=== PATIENT | female | born 1940 | race Caucasian/White ===

== ENCOUNTER 2016-10-28 14:01 | Inpatient (IN) | payer OTHER, MEDICARE ==
[~2016-10-28] VITALS: Ht 157.5 cm; Wt 61.8 kg
[2016-10-28] VITALS (8 sets, daily range): BP systolic 132–205; BP diastolic 60–94; PULSE 72–92; RESP 12–20; TEMP 98.2–99.1; O2SAT 95–100
[~2016-10-28 14:01] MED LIST: BACL10TA PO; CARA1TAB6 PO; COMMODE 3-IN-11 MIS; LEVE500 PO; LIPI10TA PO; NEUR300C PO; PANT20 PO; QUAD CANE/SMALL1 MI1; WHEEMIS3
[2016-10-28] MEDS ORDERED: SODIUM CHLOR 0.9% 1000 ML INJ 1,000 ML IV ONE (14:10)
--- NOTE | 2016-10-28 14:23 | PD ---
HPI Chief Complaint: Stroke Alert Time Seen by Provider: 14:09 Travel History International Travel<30 days: No Contact w/Intl Traveler<30days: No Traveled to known affect area: No History of Present Illness HPI 76-year-old female was brought in by EMS stroke alert. 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 Patient had TPA and subsequent intracranial hemorrhage. Patient was discharged to rehabilitation and has been doing well at home. Patient almost complete function subsequently. Patient started having aphasia and left-sided weakness and left-sided facial drooping about 1 hour prior to arrival to the ED. EMS was called. Patient was transported to the ED. No reported recent injury. EMS personnel reported on the way to the ED patient started speaking and moving left arm and left leg again. PFSH Past Medical History Hx Anticoagulant Therapy: No Arthritis: No Asthma: No Autoimmune Disease: No Heart Rhythm Problems: No Cancer: No Cardiovascular Problems: Yes High Cholesterol: No Chemotherapy: No Chest Pain: No Congestive Heart Failure: No COPD: No Cerebrovascular Accident: Yes (SAH) Diabetes: No Endocrine: No Gastrointestinal Disorders: No GERD: No Genitourinary: No Headaches: Yes Hiatal Hernia: No Heparin Induced Thrombocytopen: No Hypertension: Yes Immune Disorder: No Implanted Vascular Access Dvce: No Kidney Stones: No Musculoskeletal: No Neurologic: Yes Psychiatric: No Reproductive: No Respiratory: No Immunizations Current: Yes Migraines: No Radiation Therapy: No Renal Failure: No Seizures: No Sickle Cell Disease: No Sleep Apnea: No Thyroid Disease: No Ulcer: No : 2 Para: 2 Tubal Ligation: Yes Past Surgical History Abdominal Surgery: No AICD: No Arteriovenous Shunt: No Cardiac Surgery: No Ear Surgery: No Endocrine Surgery: No Eye Surgery: No Genitourinary Surgery: No Gynecologic Surgery: No Insulin Pump: No Joint Replacement: No Neurologic Surgery: Yes Oral Surgery: No Pacemaker: No Thoracic Surgery: No Other Surgery: Yes Social History Alcohol Use: No Tobacco Use: No Substance Use: No Allergies-Medications (Allergen,Severity, Reaction): Coded Allergies: Flu Vaccine (Verified Allergy, Severe, 10/28/16) Uncoded Allergies: anethesia (Adverse Reaction, Severe, Nausea/Vomiting, 06/15/16) Reported Meds & Prescriptions Reported Meds & Active Scripts Active Neurontin (Gabapentin) 300 Mg Cap 300 Mg PO HS Baclofen 10 Mg Tab 5 Mg PO Q12HR 30 Days Keppra (Levetiracetam) 500 Mg Tab 500 Mg PO Q12HR Carafate (Sucralfate) 1 Gm Tab 1 Gm PO BIDAC 30 Days Protonix (Pantoprazole Sodium) 20 Mg Tab 40 Mg PO Q12HR 30 Days Lipitor (Atorvastatin Calcium) 10 Mg Tab 10 Mg PO HS 30 Days Wheelchair (Device) 1 Mis Mis 1 Ea .ROUTE DIRECTED Quad Cane/Small Base (Misc. Devices) 1 Mis Mis 1 Ea .ROUTE DIRECTED Commode 3-in-1 (Device) 1 Mis Mis 1 Ea .ROUTE DIRECTED Reported Hydrocodone-Acetaminophen 10-300 Tab 1 Tab PO Q4H PRN Fosamax (Alendronate Sodium) 70 Mg Tab 70 Mg PO Q7D Review of Systems General / Constitutional: No: Fever Eyes: No: Visual changes HENT: No: Headaches Cardiovascular: No: Chest Pain or Discomfort Respiratory: No: Shortness of Breath Gastrointestinal: No: Abdominal Pain Genitourinary: No: Dysuria Musculoskeletal: No: Pain Skin: No Rash Neurologic: Positive: Weakness Psychiatric: No: Depression Endocrine: No: Polydipsia Hematologic/Lymphatic: No: Easy Bruising Physical Exam Narrative GENERAL: Well-nourished, well-developed patient. SKIN: Warm and dry. HEAD: Normocephalic. EYES: No scleral icterus. No injection or drainage. NECK: Supple, trachea midline. No JVD or lymphadenopathy. CARDIOVASCULAR: Regular rate and rhythm without murmurs, gallops, or rubs. RESPIRATORY: Breath sounds equal bilaterally. No accessory muscle use. GASTROINTESTINAL: Abdomen soft, non-tender, nondistended. MUSCULOSKELETAL: No cyanosis, or edema. BACK: Nontender without obvious deformity. No CVA tenderness. Neurologic exam: Patient's awake and alert. Patient can tell me her name and place. Unable to tell me the year. The speech is slow however no slurring. No facial drooping noted. Patient has mild weakness on the left arm and left leg. Patient's unable to lift the left arm and left leg off the bed. Deep tendon reflexes 1+ and equal. Negative Babinski. Data Data Last Documented VS Vital Signs Date Time Temp Pulse Resp B/P Pulse Ox O2 Delivery O2 Flow Rate FiO2 10/28/16 14:46 72 12 205/91 99 Nasal Cannula 2 10/28/16 14:03 98.2 Orders Diet Npo (10/28/16 Dinner) Activity Bed Rest (10/28/16 ) Electrocardiogram (10/28/16 ) I-Stat Creatinine (10/28/16 14:10) I-Stat Profile (10/28/16 14:10) Prothrombin Time / Inr (Pt) (10/28/16 14:10) Act Partial Throm Time (Ptt) (10/28/16 14:10) Complete Blood Count With Diff (10/28/16 14:10) Creatine Kinase (Cpk) (10/28/16 14:10) Troponin I (10/28/16 14:10) Ua Includes Microscopic (10/28/16 14:10) Type And Screen (10/28/16 14:10) Ct Brain W/O Iv Contrast(Rout) (10/28/16 ) Consult Neurology (10/28/16 ) Blood Glucose (10/28/16 14:10) Ecg Monitoring (10/28/16 14:10) Neuro Checks Q2HX12,Q4H (10/28/16 14:10) Nursing Bedside Swallow Assess .ONCE (10/28/16 14:10) Iv Access Insert/Monitor (10/28/16 14:10) NPO (10/28/16 14:10) Oximetry (10/28/16 14:10) Oxygen Administration (10/28/16 14:10) Sodium Chlor 0.9% 1000 Ml Inj (Ns 1000 M (10/28/16 14:10) Resp Oxygen Stevie C Titrat 1-4 L (10/28/16 14:10) (Hub Use Only)Inp Phy Cons/Ref (10/28/16 ) Dextrose 50% In Artur (Vial) Inj (D50w (Vi (10/28/16 14:45) Mri Brain W/O Contrast (10/28/16 15:21) Mra Brain W/O Contrast (Cow) (10/28/16 15:21) Mra Carotids W Contrast (10/28/16 15:21) Aspirin (Aspirin) (10/28/16 15:30) Labs Laboratory Tests Test 10/28/16 14:10 White Blood Count 11.2 TH/MM3 Red Blood Count 4.14 MIL/MM3 Hemoglobin 11.7 GM/DL Bedside Hemoglobin 12.2 G/DL Hematocrit 36.1 % Bedside Hematocrit 36.0 % Mean Corpuscular Volume 87.2 FL Mean Corpuscular Hemoglobin 28.2 PG Mean Corpuscular Hemoglobin 32.4 % Concent Red Cell Distribution Width 15.0 % Platelet Count 326 TH/MM3 Mean Platelet Volume 8.1 FL Neutrophils (%) (Auto) 64.4 % Lymphocytes (%) (Auto) 19.9 % Monocytes (%) (Auto) 8.6 % Eosinophils (%) (Auto) 6.7 % Basophils (%) (Auto) 0.4 % Neutrophils # (Auto) 7.2 TH/MM3 Lymphocytes # (Auto) 2.2 TH/MM3 Monocytes # (Auto) 1.0 TH/MM3 Eosinophils # (Auto) 0.7 TH/MM3 Basophils # (Auto) 0.0 TH/MM3 CBC Comment DIFF FINAL Differential Comment Prothrombin Time 11.0 SEC Prothromb Time International 1.0 RATIO Ratio Activated Partial 27.7 SEC Thromboplast Time Bedside Sodium 140 MMOL/L Bedside Potassium 4.1 MMOL/L Bedside Chloride 99 MMOL/L Bedside Blood Urea Nitrogen 18 MG/DL Bedside Creatinine 0.7 MG/DL Bedside Glucose 87 MG/DL Total Creatine Kinase 26 U/L Troponin I LESS THAN 0.02 NG/ML Blood Type O POSITIVE MDM Medical Decision Making Medical Screen Exam Complete: Yes Emergency Medical Condition: Yes Interpretation(s) Last Impressions Head CT 10/28/16 0000 Signed Impressions: Service Date/Time: Friday, October 28, 2016 14:18 - CONCLUSION: 1. No acute hemorrhage, mass or evidence of infarction. 2. Post surgical changes and encephalomalacia again noted. David Juárez MD 1509 p.m. CBC within normal limit. BMP within normal limit. Differential Diagnosis Differential diagnosis including TIA, CVA. Narrative Course 76-year-old female with aphasia, left facial drooping, left-sided weakness. Symptoms started about an hour prior to arrival. Symptoms improving on the way to the ED. With history of intracranial hemorrhage after TPA during past CVA and patient's symptoms improving today, I spoke with Dr. Mauro, neurologist digital operations analyst, TPA is not indicated. Aspirin 325 mg by mouth given. Diagnosis Primary Impression: Acute CVA (cerebrovascular accident) Luis Perla MD Oct 28, 2016 14:23
[2016-10-28 14:28] LABS: I-STAT POTASSIUM 4.1 MMOL/L (3.5-4.9); I-STAT SODIUM 140 MMOL/L (138-146)
[2016-10-28 14:29] LABS: AUTOMATED NEUTROPHIL # 7.2 TH/MM3 (1.8-7.7); BASOPHIL % 0.4 % (0.0-2.0); EOSINOPHIL # 0.7 TH/MM3 (0-0.4); EOSINOPHIL % 6.7 % (0.0-4.0); HEMATOCRIT 36.1 % (35.0-46.0); HEMO FLAGS DIFF FINAL; LYMPH % 19.9 % (9.0-44.0); LYMPHOCYTE # 2.2 TH/MM3 (1.0-4.8); MEAN CELL VOLUME 87.2 FL (80.0-100.0); MEAN CORPUSCULAR HEMOGLOBIN 28.2 PG (27.0-34.0); MEAN CORPUSCULAR HGB CONC 32.4 % (32.0-36.0); MONO % 8.6 % (0.0-8.0); NEUT % 64.4 % (16.0-70.0); PLATELET COUNT 326 TH/MM3 (150-450); RED BLOOD COUNT 4.14 MIL/MM3 (4.00-5.30); WHITE BLOOD COUNT 11.2 TH/MM3 (4.0-11.0)
--- NOTE | 2016-10-28 14:36 | RADRPT ---
EXAM DATE/TIME: 10/28/2016 14:18 [facility] COMPARISON: CT BRAIN W/O CONTRAST, June 15, 2016, 17:47. CT BRAIN W/O CONTRAST, June 16, 2016, 5:26. CT B RAIN W/O CONTRAST, June 24, 2016, 17:23. CT BRAIN W/O CONTRAST, July 26, 2016, 14:17. CT BRA IN W/O CONTRAST, August 26, 2016, 20:58. INDICATIONS : Stroke alert; left sided weakness and aphasia. RADIATION DOSE: 30.76 CTDIvol (mGy) This report was called by Dr. Juárez to Dr. Perla at 1428 hrs. MEDICAL HISTORY : Cerebrovascular disease. Hypertension. Cardiovascular disease SURGICAL HISTORY : Craniotomy. ENCOUNTER: Initial ACUITY: 1 day PAIN SCALE: 0/10 LOCATION: cranial TECHNIQUE: Multiple contiguous axial images were obtained of the head. Using automated exposure control and adj ustment of the mA and/or kV according to patient size, radiation dose was kept as low as reasonably a chievable to obtain optimal diagnostic quality images. FINDINGS: CEREBRUM: There is mild to moderate atrophic change. Postoperative changes are present status post right cranio yasmine. There is a focal area of encephalomalacia involving the high right parietal lobe.. No evidence of midline shift, mass lesion, hemorrhage or acute infarction. No extra-axial fluid collections are seen. The ventricular system is stable in appearance. There is a small fat density noted involving a nterior aspect of the right lateral ventricle during -38 Hounsfield units. This is unchanged. POSTERIOR FOSSA: The cerebellum and brainstem are intact. The 4th ventricle is midline. The cerebellopontine angle i s unremarkable. EXTRACRANIAL: The visualized portion of the orbits is intact. SKULL: The calvaria is intact. No evidence of skull fracture. CONCLUSION: 1. No acute hemorrhage, mass or evidence of infarction. 2. Post surgical changes and encephalomalacia again noted. David Juárez MD on October 28, 2016 at 14:26 Board Certified Radiologist. This report was verified electronically.
[2016-10-28 14:40] LABS: APTT (PATIENT) 27.7 SEC (24.3-30.1)
[2016-10-28] MEDS ORDERED: DEXTROSE 50% IN WATER 50 ML VIAL(D50) IV PUSH ONE (14:45)
[2016-10-28 14:48] LABS: CREATINE KINASE 26 U/L (26-192)
[2016-10-28] MEDS ORDERED: FOSA70TA PO (15:05)
[2016-10-28] MEDS ORDERED: HYDR-2374 PO (15:05)
[2016-10-28] MEDS ORDERED: ASPIRIN 300 MG SUPP RECTAL ONE (15:30)
[2016-10-28] MEDS ORDERED: ASPIRIN 325 MG TAB PO ONE (15:30)
[2016-10-28 15:32] LABS: BLOOD, URINE NEG (NEG); GLUCOSE,URINE NEG (NEG); KETONE, URINE NEG (NEG); NITRITE,URINE NEG (NEG); SQUAMOUS EPITHELIAL CELL URINE 1 /hpf (0-5); URINE COLOR COLORLESS (YELLW/STRAW)
--- NOTE | 2016-10-28 16:04 | HHI.HP ---
[facility] Service [facility] Primary Care Physician Unknown Admission Diagnosis acute CVA Diagnoses: (1) CVA (cerebral vascular accident) Diagnosis: Principal Chief Complaint: slurred speech and left sided weakness Travel History International Travel<30 Days: No Contact w/Intl Traveler <30 Da: No Traveled to Known Affected Are: No History of Present Illness patient is a 76 y/o female, known to me from previous admission, with history of CVA, intracranial bleed after TPA administration ( ), hypertension, presented to ER with slurred speech and left-sided weakness. the family said that she started to have some slurred speech and left sided weakness about three hours ago. she says that her speech has improved however still has some ' heaviness' of the left leg. she denies any chest pain or sob. she was admitted to this hospital in 2015 with CVA and developed intracranial hemorrhage after TPA for which she had craniotomy. she was then discharged to inpatient rehab. the family say that she's been doing fairly fine since then. Review of Systems Constitutional: DENIES: Fever, Weight loss, Chills, Night Sweats Eyes: DENIES: Blurred vision, Diplopia, Vision loss, Double Vision Ears, nose, mouth, throat: DENIES: Tinnitus, Vertigo, Throat pain, Epistaxis Respiratory: DENIES: Apneas, Cough, Snoring, Wheezing, Hemoptysis, Sputum production, Shortness of breath Cardiovascular: DENIES: Chest pain, Palpitations, Syncope, Dyspnea on Exertion , PND, Lower Extremity Edema, Orthopnea, Claudication Gastrointestinal: DENIES: Abdominal pain, Black stools, Bloody stools, Constipation, Diarrhea, Nausea, Vomiting, Difficulty Swallowing, Anorexia Genitourinary: DENIES: Urinary frequency, Urgency, Hematuria, Dysuria Musculoskeletal: DENIES: Joint pain, Muscle aches, Stiffness, Joint Swelling Integumentary: DENIES: Rash Neurologic: COMPLAINS OF: Localized weakness, Speech Problems, DENIES: Abnormal gait, Headache, Paresthesias, Seizures, Tremor, Poor Balance Psychiatric: DENIES: Anxiety, Confusion, Mood changes, Depression, Hallucinations, Agitation, Suicidal Ideation, Homicidal Ideation, Delusions Past Family Social History Past Medical History CVA hypertension neuropathy Past Surgical History craniotomy Reported Medications Neurontin (Gabapentin) 300 Mg Cap 300 Mg PO HS Baclofen 10 Mg Tab 5 Mg PO Q12HR 30 Days Keppra (Levetiracetam) 500 Mg Tab 500 Mg PO Q12HR Carafate (Sucralfate) 1 Gm Tab 1 Gm PO BIDAC 30 Days Protonix (Pantoprazole Sodium) 20 Mg Tab 40 Mg PO Q12HR 30 Days Lipitor (Atorvastatin Calcium) 10 Mg Tab 10 Mg PO HS 30 Days Wheelchair (Device) 1 Mis Mis 1 Ea .ROUTE DIRECTED Quad Cane/Small Base (Misc. Devices) 1 Mis Mis 1 Ea .ROUTE DIRECTED Commode 3-in-1 (Device) 1 Mis Mis 1 Ea .ROUTE DIRECTED Hydrocodone-Acetaminophen 10-300 Tab 1 Tab PO Q4H PRN Fosamax (Alendronate Sodium) 70 Mg Tab 70 Mg PO Q7D Allergies: Coded Allergies: Flu Vaccine (Verified Allergy, Severe, 10/28/16) Uncoded Allergies: anethesia (Adverse Reaction, Severe, Nausea/Vomiting, 06/15/16) Active Ordered Medications Current Medications Sodium Chloride (NS 1000 ml Inj) 1,000 ml @ 70 mls/hr [id number] ONCE IV Last administered on 10/28/16 14:20; Start 10/28/16 at 14:10; Stop 10/29/16 at 04:27 Dextrose (D50w (Vial) Inj) 25 ml ONCE ONCE IV PUSH Last administered on 14:48; Start 10/28/16 at 14:45; Stop 10/28/16 at 14:46; Status DC Aspirin (Aspirin) 325 mg ONCE ONCE PO Last administered on 10/28/16 15:35; Start 10/28/16 at 15:30; Stop 10/28/16 at 15:31; Status DC Aspirin (Aspirin Supp) 300 mg ONCE ONCE RECTAL ; Start 10/28/16 at 15:30; Stop 10/28/16 at 15:36; Status DC Social History no smoking or drinking. Physical Exam Vital Signs Vital Signs Date Time Temp Pulse Resp B/P Pulse Ox O2 Delivery O2 Flow Rate FiO2 10/28/16 14:46 72 12 205/91 99 Nasal Cannula 2 10/28/16 14:20 83 20 197/82 98 Nasal Cannula 2 10/28/16 14:13 98 Nasal Cannula 2 10/28/16 14:13 98 Room Air 10/28/16 14:10 98 2.00 10/28/16 14:10 98 Nasal Cannula 2.00 10/28/16 14:03 98.2 92 20 185/93 99 Physical Exam GENERAL: This is a well-nourished, well-developed patient, in no apparent distress. SKIN: No rashes, ecchymoses or lesions. Cool and dry. HEAD: Atraumatic. Normocephalic. No temporal or scalp tenderness. EYES: Pupils equal round and reactive. Extraocular motions intact. No scleral icterus. No injection or drainage. ENT: Nose without bleeding, purulent drainage or septal hematoma. Throat without erythema, tonsillar hypertrophy or exudate. Uvula midline. Airway patent. NECK: Trachea midline. No JVD or lymphadenopathy. Supple, nontender, no meningeal signs. CARDIOVASCULAR: Regular rate and rhythm without murmurs, gallops, or rubs. RESPIRATORY: Clear to auscultation. Breath sounds equal bilaterally. No wheezes , rales, or rhonchi. GASTROINTESTINAL: Abdomen soft, non-tender, nondistended. No hepato-splenomegaly , or palpable masses. No guarding. MUSCULOSKELETAL: Extremities without clubbing, cyanosis, or edema. No joint tenderness, effusion, or edema noted. No calf tenderness. Negative Homans sign bilaterally. NEUROLOGICAL: Awake and alert. Cranial nerves II through XII intact. Motor and sensory grossly within normal limits. some weakness of the left upper and lower extremities. Laboratory Laboratory Tests Test 10/28/16 10/28/16 14:10 15:00 White Blood Count 11.2 Red Blood Count 4.14 Hemoglobin 11.7 Bedside Hemoglobin 12.2 Hematocrit 36.1 Bedside Hematocrit 36.0 Mean Corpuscular Volume 87.2 Mean Corpuscular Hemoglobin 28.2 Mean Corpuscular Hemoglobin 32.4 Concent Red Cell Distribution Width 15.0 Platelet Count 326 Mean Platelet Volume 8.1 Neutrophils (%) (Auto) 64.4 Lymphocytes (%) (Auto) 19.9 Monocytes (%) (Auto) 8.6 Eosinophils (%) (Auto) 6.7 Basophils (%) (Auto) 0.4 Neutrophils # (Auto) 7.2 Lymphocytes # (Auto) 2.2 Monocytes # (Auto) 1.0 Eosinophils # (Auto) 0.7 Basophils # (Auto) 0.0 CBC Comment DIFF FINAL Differential Comment Prothrombin Time 11.0 Prothromb Time International 1.0 Ratio Activated Partial 27.7 Thromboplast Time Bedside Sodium 140 Bedside Potassium 4.1 Bedside Chloride 99 Bedside Blood Urea Nitrogen 18 Bedside Creatinine 0.7 Bedside Glucose 87 Total Creatine Kinase 26 Troponin I LESS THAN 0.02 Blood Type O POSITIVE Urine Color COLORLESS Urine Turbidity CLEAR Urine pH 7.0 Urine Specific Cunningham 1.002 Urine Protein NEG Urine Glucose (UA) NEG Urine Ketones NEG Urine Occult Blood NEG Urine Nitrite NEG Urine Bilirubin NEG Urine Urobilinogen LESS THAN 2.0 Urine Leukocyte Esterase NEG Urine Squamous Epithelial 1 Cells Result Diagram: 10/28/16 1410 Imaging Last Impressions Head CT 10/28/16 0000 Signed Impressions: Service Date/Time: Friday, October 28, 2016 14:18 - CONCLUSION: 1. No acute hemorrhage, mass or evidence of infarction. 2. Post surgical changes and encephalomalacia again noted. David Juárez MD EKG; sinus rhythm with no acute ST-T changes. Assessment and Plan Assessment and Plan A/P - possible CVA with history of CVA/ intracranial hemorrhage after TPA neuro-checks- received aspirin- MRI brain pending- consulted neurology- PT/ST evaluation. neck CTA 2015 with no significant stenosis. -hypertension; will continue with permissive hypertension- vasotec prn -DVT prophylaxis with SCD's Discussed Condition With ER physician, the patient and her family. Physician Certification 2 Midnight Certification Type: Admission for Inpatient Services Order for Inpatient Services The services are ordered in accordance with Medicare regulations or non- Medicare payer requirements, as applicable. In the case of services not specified as inpatient-only, they are appropriately provided as inpatient services in accordance with the 2-midnight benchmark. Estimated LOS (days): 2 days is the estimated time the patient will need to remain in the hospital, assuming treatment plan goals are met and no additional complications. Post-Hospital Plan: Not yet determined Problem Qualifiers (1) CVA (cerebral vascular accident): Dianna Larson MD Oct 28, 2016 16:04
[2016-10-28] MEDS ORDERED: ENALAPRILAT 1.25 MG/ML VIAL IV PUSH PRN (16:15)
[2016-10-28] MEDS ORDERED: ONDANSETRON HCL 4 MG/2 ML VIAL IV PUSH PRN (16:15)
[2016-10-28] MEDS ORDERED: ACETAMINOPHEN 325 MG TAB PO PRN (16:15)
[2016-10-28] MEDS ORDERED: GADODIAMIDE PF 287 MG/ML 20 ML VIAL (for RAD MRI) IV ONE (16:38)
--- NOTE | 2016-10-28 17:25 | RADRPT ---
EXAM DATE/TIME: 10/28/2016 16:17 [facility] COMPARISON: No previous studies available for comparison. INDICATIONS : Aphasia. Left sided weakness and facial droop. MEDICAL HISTORY : Cerebrovascular disease. SURGICAL HISTORY : Rotator cuff, left. Tubal ligation. Ankle repair. ENCOUNTER: Subsequent ACUITY: 1 day PAIN SCORE: 0/10 LOCATION: head. Please note a normal MRA of the brain does not entirely exclude the possibility of a small aneurysm, nor the possibility of distal intracranial vessel disease. TECHNIQUE: 3D time of flight MRA was performed. Source images, multiplanar STS MIP, and 3D volume MIP reconstru ctions were reviewed. FINDINGS: There is excellent visualization of the major intracranial arteries out to the second-order branch ve ssels. There is no evidence for aneurysm, vessel truncation or stenosis, and no evidence for vascula r malformation. Of note, the entire posterior circulation is diminutive as the basilar system terminates in superior cerebellar branches. 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 Patient is right vertebral dominant. CONCLUSION: 1. 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 P atient is slightly right vertebral dominant. 2. Otherwise, intracranial vessels are all patent without aneurysmal disease. Byron Harrison MD on October 28, 2016 at 17:21 Board Certified Radiologist. This report was verified electronically.
--- NOTE | 2016-10-28 17:25 | RADRPT ---
EXAM DATE/TIME: 10/28/2016 16:17 [facility] COMPARISON: CT BRAIN W/O CONTRAST, August 11, 2016, 3:34. CT BRAIN W/O CONTRAST, August 26, 2016, 20:58. CT BRAIN W/O CONTRAST, October 28, 2016, 14:18. INDICATIONS : Aphasia. Left sided weakness and facial droop. MEDICAL HISTORY : Cardiovascular disease SURGICAL HISTORY : Rotator cuff, left. Tubal ligation. Ankle repair. ENCOUNTER: Subsequent ACUITY: 1 day PAIN SCORE: 0/10 LOCATION: head. TECHNIQUE: Multiplanar, multisequence MRI of the brain was performed without contrast. FINDINGS: CEREBRUM: There is mild to moderate atrophic change with sulcal and ventricular prominence. No evidence of midl ine shift, mass lesion, or hemorrhage. There is an area of encephalomalacia again noted involving the right parietal lobe with increased T2 signal and apparent gliosis. No extraaxial fluid collections a re seen. The pituitary gland and suprasellar cistern are normal in configuration. The ventricular sy stem remains within normal limits. There is a small lipoma in the anterior tip of the right lateral v entricle. WHITE MATTER: On the flair weighted images there is increased signal in the centrum semiovale and periventricular w catia matter consistent with chronic small vessel ischemic change. There is a small lacunar infarct in the left basal ganglia. POSTERIOR FOSSA: The cerebellum and brainstem are intact. The 4th ventricle is midline. The cerebellopontine angle is unremarkable. The cerebellar tonsils are normal in position. DIFFUSION IMAGING: On the echoplanar weighted images there are multiple areas of mildly increased signal noted within th e area of encephalomalacia. EXTRACRANIAL: The visualized portions of the orbits and paranasal sinuses are unremarkable. The patient is status p ost right craniotomy. CONCLUSION: 1. No acute hemorrhage. 2. Area of encephalomalacia and gliosis in the right parietal lobe at site of prior infarction and he morrhage. There are areas of mildly increased signal in the echoplanar weighted images which could re present joselin-infarct ischemia or T2 shine through. 3. No mass effect or midline shift. 4. 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 David Juárez MD on October 28, 2016 at 17:09 Board Certified Radiologist. This report was verified electronically.
--- NOTE | 2016-10-28 17:29 | RADRPT ---
EXAM DATE/TIME: 10/28/2016 16:17 [facility] COMPARISON: No previous studies available for comparison. INDICATIONS : Stenosis. Left sided weakness. CONTRAST: 20 cc Omniscan (gadodiamide) IV MEDICAL HISTORY : Cerebrovascular disease. SURGICAL HISTORY : Rotator cuff, left. Tubal ligation. Ankle repair. ENCOUNTER: Subsequent ACUITY: 1 day PAIN SCORE: 0/10 LOCATION: neck. Percent stenosis is calculated using the diameter of the stenotic region over the diameter of the nor mal distal internal carotid artery. TECHNIQUE: Bolus infused MRA of the extracranial circulation was performed using a neurovascular coil. Post pro cessing was performed including rotationg subvolume maximum intensity projections of each carotid art rodrigo, rotating full volume maximum intensity projections of both carotid arteries, sagittal and weir l sliding thin slab reformations of each carotid artery, and left oblique sliding thin slab reformati on through the aortic arch to include the origin of the arch branch vessels. FINDINGS: AORTIC ARCH: There is a three vessel origin of the great vessels from the aorta. No evidence of ostial narrowing. RIGHT CAROTID: The common carotid artery is intact. The carotid bulb has a normal configuration without ulceration or narrowing. The internal carotid artery lumen is smooth without stenosis. The external carotid ar roosevelt is intact. LEFT CAROTID: The common carotid artery is intact. The carotid bulb has a normal configuration without ulceration or narrowing. The internal carotid artery lumen is smooth without stenosis. The external carotid ar roosevelt is intact with some mild atherosclerotic irregularity near the origin. VERTEBRALS: The entire posterior circulation is relatively diminutive as the basilar terminates in superior cereb ellar arteries bilaterally. Patient is slightly right vertebral dominant. The posterior circulation i s patent throughout, however. CONCLUSION: 1. Cervical vessels are all widely patent except for some mild atherosclerotic irregularity of the le ft external carotid. 2. Congenitally diminutive posterior circulation. Byron Harrison MD on October 28, 2016 at 17:24 Board Certified Radiologist. This report was verified electronically.
[2016-10-28] MEDS ORDERED: NITR1CAP36 PO (19:31)
--- NOTE | 2016-10-28 20:05 | PD.CONS ---
History of Present Illness Service Neurology Consult Requested By er Reason for Consult stroke Primary Care Physician Christiano Maravilla MD History of Present Illness 76 y/o female, admitted for possible recurrent stroke. ICH after iv TPA administration 06/2016 requiring cranio, hypertension, presented to ER with slurred speech and left-sided weakness worse then her residual from the prior stroke. her residuals are left arm greater then leg weakness. she is able to ambulate independently. her speech has improved; they feel her left hand may not be back to her new baseline. takes keppra bid. not on any antiplatelets. mri brain/mra brain/carotids performed. Review of Systems as above and admit hp Past Family Social History Past Medical History rt mca stroke hypertension neuropathy Past Surgical History craniotomy Reported Medications Neurontin (Gabapentin) 300 Mg Cap 300 Mg PO HS Baclofen 10 Mg Tab 5 Mg PO Q12HR 30 Days Keppra (Levetiracetam) 500 Mg Tab 500 Mg PO Q12HR Carafate (Sucralfate) 1 Gm Tab 1 Gm PO BIDAC 30 Days Protonix (Pantoprazole Sodium) 20 Mg Tab 40 Mg PO Q12HR 30 Days Lipitor (Atorvastatin Calcium) 10 Mg Tab 10 Mg PO HS 30 Days Wheelchair (Device) 1 Mis Mis 1 Ea .ROUTE DIRECTED Quad Cane/Small Base (Misc. Devices) 1 Mis Mis 1 Ea .ROUTE DIRECTED Commode 3-in-1 (Device) 1 Mis Mis 1 Ea .ROUTE DIRECTED Hydrocodone-Acetaminophen 10-300 Tab 1 Tab PO Q4H PRN Fosamax (Alendronate Sodium) 70 Mg Tab 70 Mg PO Q7D Allergies: Coded Allergies: Flu Vaccine (Verified Allergy, Severe, 10/28/16) Uncoded Allergies: anesthesia (Adverse Reaction, Severe, Nausea/Vomiting, 06/15/16) Social History no smoking or drinking. Review of Systems All other ROS: ROS reviewed as documented in chart Past Family Social History Allergies: Coded Allergies: Flu Vaccine (Verified Allergy, Severe, 10/28/16) Uncoded Allergies: anethesia (Adverse Reaction, Severe, Nausea/Vomiting, 06/15/16) Active Ordered Medications Current Medications Medications (Trade) Dose Ordered Sig/[place]ona Route Start Time Stop Time Status Last Admin (NS 1000 ml Inj) 1,000 ml @ 70 mls/hr [id number] ONCE IV 10/28/16 14:10 10/29/16 04:27 10/28/16 14:20 (Lipitor) 10 mg HS PO 10/28/16 21:00 (Keppra) 500 mg Q12HR PO 10/28/16 21:00 (Vasotec Inj) 1.25 mg Q8H PRN IV PUSH 10/28/16 16:15 (Zofran Inj) 4 mg Q8HR PRN IV PUSH 10/28/16 16:15 (Tylenol) 650 mg Q4H PRN PO 10/28/16 16:15 Exam I&O / VS Vital Signs Date Time Temp Pulse Resp B/P Pulse Ox O2 Delivery O2 Flow Rate FiO2 10/28/16 19:06 74 16 132/60 96 Nasal Cannula 2 10/28/16 17:04 78 16 145/72 100 Nasal Cannula 2 10/28/16 14:46 72 12 205/91 99 Nasal Cannula 2 10/28/16 14:20 83 20 197/82 98 Nasal Cannula 2 10/28/16 14:13 98 Nasal Cannula 2 10/28/16 14:13 98 Room Air 10/28/16 14:10 98 2.00 10/28/16 14:10 98 Nasal Cannula 2.00 10/28/16 14:03 98.2 92 20 185/93 99 General: Alert and Oriented, No acute distress Respiratory: Lungs CTA, Non-labored respirations Cardiology: Normal rate, Regular Rhythm Neurologic: Alert, Oriented Psychiatric: Cooperative, Appropriate mood & affect Exam Comments ox 3. mild dysarthria. follows. mild reduced left nlf, left ue 4/5 with reduced ffm, left leg 5-/5, mild left sided spasticity, left hemisensory Review/Management Diagnosis/Plan: (1) Chronic ischemic right MCA stroke Plan: possible extension vs 2/2 elevated bp recs aspirin qd eeg bp control p.t. d/c planning tomorrow if stable (2) Left hemiparesis (3) Dyslipidemia (4) HTN (hypertension) Problem Qualifiers (1) HTN (hypertension): Qualified Code: I10 - Essential hypertension Driss Mauro MD Oct 28, 2016 20:05
[2016-10-28] MEDS ORDERED: ATORVASTATIN 10 MG TAB PO SCH (21:00)
[2016-10-28] MEDS: levETIRAcetam 500 MG TAB PO SCH (21:04)
[2016-10-29] VITALS (7 sets, daily range): BP systolic 137–156; BP diastolic 61–80; PULSE 73–170; RESP 17–20; TEMP 97.4–99; O2SAT 92–98
--- NOTE | 2016-10-29 08:15 | HHI.PR ---
Subjective Remarks f/u; CVA in no acute distress. no new complaints. Objective Vitals Vital Signs Date Time Temp Pulse Resp B/P Pulse Ox O2 Delivery O2 Flow Rate FiO2 10/29/16 05:30 97.4 75 18 137/80 93 10/29/16 04:13 92 Nasal Cannula 2.00 10/29/16 00:40 99.0 75 18 153/71 93 10/28/16 21:57 99.1 79 18 151/94 95 10/28/16 19:06 74 16 132/60 96 Nasal Cannula 2 10/28/16 17:04 78 16 145/72 100 Nasal Cannula 2 10/28/16 14:46 72 12 205/91 99 Nasal Cannula 2 10/28/16 14:20 83 20 197/82 98 Nasal Cannula 2 10/28/16 14:13 98 Nasal Cannula 2 10/28/16 14:13 98 Room Air 10/28/16 14:10 98 2.00 10/28/16 14:10 98 Nasal Cannula 2.00 10/28/16 14:03 98.2 92 20 185/93 99 Result Diagram: 10/28/16 1410 Imaging Last Impressions Neck Magnetic Resonance Angiography 10/28/16 1521 Signed Impressions: Service Date/Time: Friday, October 28, 2016 16:17 - CONCLUSION: 1. Cervical vessels are all widely patent except for some mild atherosclerotic irregularity of the left external carotid. 2. Congenitally diminutive posterior circulation. Byron Harrison MD Head Magnetic Resonance Angiography 10/28/16 1521 Signed Impressions: Service Date/Time: Friday, October 28, 2016 16:17 - CONCLUSION: 1. 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 Patient is slightly right vertebral dominant. 2. Otherwise, intracranial vessels are all patent without aneurysmal disease. Byron Harrison MD Brain MRI 10/28/16 1521 Signed Impressions: Service Date/Time: Friday, October 28, 2016 16:17 - CONCLUSION: 1. No acute hemorrhage. 2. Area of encephalomalacia and gliosis in the right parietal lobe at site of prior infarction and hemorrhage. There are areas of mildly increased signal in the echoplanar weighted images which could represent joselin-infarct ischemia or T2 shine through. 3. No mass effect or midline shift. 4. 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 David Juárez MD Head CT 10/28/16 0000 Signed Impressions: Service Date/Time: Friday, October 28, 2016 14:18 - CONCLUSION: 1. No acute hemorrhage, mass or evidence of infarction. 2. Post surgical changes and encephalomalacia again noted. David Juárez MD Objective Remarks GENERAL: This is a well-nourished, well-developed patient, in no apparent distress. CARDIOVASCULAR: Regular rate and regular rhythm without murmurs, gallops, or rubs. RESPIRATORY: Clear to auscultation. Breath sounds equal bilaterally. No wheezes , rales, or rhonchi. GASTROINTESTINAL: Abdomen soft, non-tender, nondistended. Normal, active bowel sounds MUSCULOSKELETAL: Extremities without clubbing, cyanosis, or edema. NEURO: Alert & Oriented x4 to person, place, time, situation. Moves all ext x4 Procedures none Medications and IVs Current Medications Sodium Chloride (NS 1000 ml Inj) 1,000 ml @ 70 mls/hr [id number] ONCE IV Last administered on 10/28/16 14:20; Start 10/28/16 at 14:10; Stop 10/29/16 at 04:27 ; Status DC Dextrose (D50w (Vial) Inj) 25 ml ONCE ONCE IV PUSH Last administered on 14:48; Start 10/28/16 at 14:45; Stop 10/28/16 at 14:46; Status DC Aspirin (Aspirin) 325 mg ONCE ONCE PO Last administered on 10/28/16 15:35; Start 10/28/16 at 15:30; Stop 10/28/16 at 15:31; Status DC Aspirin (Aspirin Supp) 300 mg ONCE ONCE RECTAL ; Start 10/28/16 at 15:30; Stop 10/28/16 at 15:36; Status DC Atorvastatin Calcium (Lipitor) 10 mg HS PO Last administered on 10/28/16 22:18 ; Start 10/28/16 at 21:00 Levetriacetam (Keppra) 500 mg Q12HR PO Last administered on 10/28/16 21:04; Start 10/28/16 at 21:00 Enalaprilat (Vasotec Inj) 1.25 mg Q8H PRN IV PUSH SBP > 200 OR DBP > 120; Start 10/28/16 at 16:15 Ondansetron HCl (Zofran Inj) 4 mg Q8HR PRN IV PUSH NAUSEA; Start 10/28/16 at 16 :15 Acetaminophen (Tylenol) 650 mg Q4H PRN PO FEVER/ HEADACHE/PAIN Last administered on 10/29/16 06:01; Start 10/28/16 at 16:15 Gadodiamide (Omniscan Pf Inj) 20 ml STK-MED ONCE IV Last administered on 16:38; Start 10/28/16 at 16:38; Stop 10/28/16 at 16:39; Status DC A/P Assessment and Plan A/P - possible CVA with history of CVA/ intracranial hemorrhage after TPA neuro-checks- continue aspirin- awaiting PT evaluation and EEG. neurology consult appreciated. -DVT prophylaxis with SCD's Discharge Planning pending EEG and PT evaluation. dc planning within the next 24 hrs. Dianna Larson MD Oct 29, 2016 08:15
--- NOTE | 2016-10-29 08:33 | HHI.PR ---
Review/Management Diagnosis/Plan: (1) Chronic ischemic right MCA stroke Plan: possible extension vs 2/2 elevated bp recs aspirin qd eeg-pending bp control p.t. d/c planning today after eeg- if stable outpatient f/u with Dr. Burgos, (2) Left hemiparesis (3) Dyslipidemia (4) HTN (hypertension) Subjective Subjective Comments No acute events reported No headache No chest pain No dyspnea Active Medications Current Medications Medications (Trade) Dose Ordered Sig/Alona Route Start Time Stop Time Status Last Admin (Lipitor) 10 mg HS PO 10/28/16 21:00 10/28/16 22:18 (Keppra) 500 mg Q12HR PO 10/28/16 21:00 10/28/16 21:04 (Vasotec Inj) 1.25 mg Q8H PRN IV PUSH 10/28/16 16:15 (Zofran Inj) 4 mg Q8HR PRN IV PUSH 10/28/16 16:15 (Tylenol) 650 mg Q4H PRN PO 10/28/16 16:15 10/29/16 06:01 (Ecotrin Ec) 162 mg DAILY PO 10/29/16 09:00 Allergies Allergies Coded Allergies Flu Vaccine (Verified Allergy, Severe, 10/28/16) Uncoded Allergies anethesia ( Adverse Reaction, Severe, Nausea/Vomiting, 06/15/16) Review of Systems All other ROS: ROS reviewed as documented in chart Exam I&O / VS Vital Signs Date Time Temp Pulse Resp B/P Pulse Ox O2 Delivery O2 Flow Rate FiO2 10/29/16 08:04 98.1 73 20 156/61 97 10/29/16 05:30 97.4 75 18 137/80 93 10/29/16 04:13 92 Nasal Cannula 2.00 10/29/16 00:40 99.0 75 18 153/71 93 10/28/16 21:57 99.1 79 18 151/94 95 10/28/16 19:06 74 16 132/60 96 Nasal Cannula 2 10/28/16 17:04 78 16 145/72 100 Nasal Cannula 2 10/28/16 14:46 72 12 205/91 99 Nasal Cannula 2 10/28/16 14:20 83 20 197/82 98 Nasal Cannula 2 10/28/16 14:13 98 Nasal Cannula 2 10/28/16 14:13 98 Room Air 10/28/16 14:10 98 2.00 10/28/16 14:10 98 Nasal Cannula 2.00 10/28/16 14:03 98.2 92 20 185/93 99 General: Alert and Oriented, No acute distress Respiratory: Lungs CTA, Non-labored respirations Cardiology: Normal rate, Regular Rhythm Neurologic: Alert, Oriented Psychiatric: Cooperative, Appropriate mood & affect Exam Comments ox 3. mild dysarthria. follows. mild reduced left nlf, left ue 4/5 with reduced ffm, left leg 5-/5, mild left sided spasticity, left hemisensory, ambulating with walker with p.t. Objective Micro and Labs Laboratory Tests Test 10/28/16 10/28/16 14:10 15:00 White Blood Count 11.2 Red Blood Count 4.14 Hemoglobin 11.7 Bedside Hemoglobin 12.2 Hematocrit 36.1 Bedside Hematocrit 36.0 Mean Corpuscular Volume 87.2 Mean Corpuscular Hemoglobin 28.2 Mean Corpuscular Hemoglobin 32.4 Concent Red Cell Distribution Width 15.0 Platelet Count 326 Mean Platelet Volume 8.1 Neutrophils (%) (Auto) 64.4 Lymphocytes (%) (Auto) 19.9 Monocytes (%) (Auto) 8.6 Eosinophils (%) (Auto) 6.7 Basophils (%) (Auto) 0.4 Neutrophils # (Auto) 7.2 Lymphocytes # (Auto) 2.2 Monocytes # (Auto) 1.0 Eosinophils # (Auto) 0.7 Basophils # (Auto) 0.0 CBC Comment DIFF FINAL Differential Comment Prothrombin Time 11.0 Prothromb Time International 1.0 Ratio Activated Partial 27.7 Thromboplast Time Bedside Sodium 140 Bedside Potassium 4.1 Bedside Chloride 99 Bedside Blood Urea Nitrogen 18 Bedside Creatinine 0.7 Bedside Glucose 87 Total Creatine Kinase 26 Troponin I LESS THAN 0.02 Blood Type O POSITIVE Antibody Screen NEGATIVE Urine Color COLORLESS Urine Turbidity CLEAR Urine pH 7.0 Urine Specific [place] 1.002 Urine Protein NEG Urine Glucose (UA) NEG Urine Ketones NEG Urine Occult Blood NEG Urine Nitrite NEG Urine Bilirubin NEG Urine Urobilinogen LESS THAN 2.0 Urine Leukocyte Esterase NEG Urine Squamous Epithelial 1 Cells Problem Qualifiers (1) HTN (hypertension): Qualified Code: I10 - Essential hypertension Driss Mauro MD Oct 29, 2016 08:33
[2016-10-29] MEDS ORDERED: ASPIRIN EC 81 MG TABEC PO SCH (09:00)
[2016-10-29] MEDS: levETIRAcetam 500 MG TAB PO SCH (11:20)
[2016-10-29 11:42] LABS: HDL CHOLESTEROL 41.6 MG/DL (40.0-60.0)
[2016-10-29] MEDS ORDERED: ASPI81CH CHEW (16:14)
--- NOTE | 2016-10-29 18:06 | HHI.PR ---
Addendum To [facility] Progress Not Reason for addendum: Additonal documentation (patient wants to go home. d/w ; patient will be discharged home with outpatient f/u with neurology. this was d/w the patient, her and the RN. ) Dianna Larson MD Oct 29, 2016 18:06
--- NOTE | 2016-10-29 18:09 | HHI.DCPOC ---
Discharge Care Plan Diagnosis: (1) History of CVA (cerebrovascular accident) Your Health Problems Are: Loss of Movements Goals to Promote Your Health * To prevent worsening of your condition and complications * To maintain your health at the optimal level Directions to Meet Your Goals Take your medications as prescribed Follow your dietary instruction Follow activity as directed Keep your appointments as scheduled Take your immunizations and boosters as scheduled If your symptoms worsen call your PCP, if no PCP go to Urgent Care Center or Emergency Room Smoking is Dangerous to Your Health. Avoid second hand smoke Call the 24-hour hour crisis hotline for domestic abuse at Dianna Larson MD Oct 29, 2016 18:09
--- NOTE | 2016-10-29 23:06 | EKG ---
Date Performed: 10/28/2016 Time Performed: 14:34:21 PTAGE: 76 years EKG: Sinus rhythm NORMAL ECG PREVIOUS TRACING : 08/26/2016 21.13 DOCTOR: Joel Wells Interpretating Date/Time 10/29/2016 22:59:59
== END 2016-10-29 18:41 | disposition home or self-care (01) | DRG 305 ==
LOC: NEPC 14:01 → NEDA 15:43 → NEDH 19:55 → NEPHCDU 21:29
PROVIDERS: ADMIT Internal Medicine; ATTEND Internal Medicine
DX: I10 Essential (primary) hypertension (principal); G81.94 Hemiplegia, unspecified affecting left nondominant side; G62.9 Polyneuropathy, unspecified; R47.01 Aphasia; R29.810 Facial weakness; E78.5 Hyperlipidemia, unspecified; Z88.4 Allergy status to anesthetic agent; Z88.7 Allergy status to serum and vaccine
CPT/HCPCS: 70450; 70544; 70548; 70551; 80061; 81001; 82435; 82550; 82565; 82947; 84132; 84295; 84484; 84520; 85025; 85610; 85730; 86850; 86900; 86901; 93005; 96361; 96374; A9579; J7030

== ENCOUNTER 2016-10-31 09:35 | Observation (INO) | payer MEDICARE, OTHER ==
[2016-10-31] VITALS (7 sets, daily range): BP systolic 112–146; BP diastolic 51–70; PULSE 77–99; RESP 18–19; TEMP 98–98.8; O2SAT 95–98
[~2016-10-31] VITALS: Ht 157.5 cm; Wt 56.7 kg
[~2016-10-31 09:35] MED LIST changes: +ASPI81CH CHEW; +FOSA70TA PO; +HYDR-2374 PO; +NITR1CAP36 PO
[2016-10-31] MEDS ORDERED: SODIUM CHLORIDE 0.9% FLUSH 5 ML FLUSH IVF PRN (10:15)
--- NOTE | 2016-10-31 10:15 | PD ---
HPI Chief Complaint: Syncope/Near-Syncope Time Seen by Provider: 09:55 Travel History International Travel<30 days: No Contact w/Intl Traveler<30days: No Traveled to known affect area: No History of Present Illness HPI Patient is a 76 year old female with hx of CVA with left sided deficits, intracranial bleed after TPA (June 2016), htn, and questionable seizure activity, presents to ER for evaluation of syncopal episode. As per patient, she reports that she woke up this morning and felt fine. Reports that she sat down to have her breakfast and doesn't remember what happened. Patient was told by her that she had a syncopal episode, patient reports that she woke up sitting at the kitchen table with a nurse evaluating her. reports that when she passed out, he ran over to the neighbor's house and asked the neighbor who had a RN as a daughter to come help him. Reports that she is unsure who long she was "unconscious for," patient's reports that patient was unconscious for around 7-8 minutes. Patient at this time with no complaints. No headache or dizziness, patient with no chest pain or shortness of breath. Patient reports that she feels fine at this time, patient unable to provide medication list. Patient denies fevers or chills, patient denies chest pain or shortness of breath. Patient with no other complaints. As per patient , she is scheduled for an EEG tomorrow for workup of possible seizures. PFSH Past Medical History Hx Anticoagulant Therapy: No Arthritis: No Asthma: No Autoimmune Disease: No Blood Disorders: No Anxiety: No Depression: No Heart Rhythm Problems: No Cancer: No Cardiovascular Problems: Yes High Cholesterol: Yes Chemotherapy: No Chest Pain: No Congestive Heart Failure: No COPD: No Cerebrovascular Accident: Yes (SAH) Diabetes: No Endocrine: No Gastrointestinal Disorders: No GERD: No Genitourinary: Yes (URINARY TRACT INFECTIONS ) Headaches: Yes Hiatal Hernia: No Heparin Induced Thrombocytopen: No Hypertension: Yes Immune Disorder: Yes (ALLERGIES ) Implanted Vascular Access Dvce: No Kidney Stones: No Musculoskeletal: Yes (ARTHRITIS, OSTEOPORSIS ) Neurologic: Yes (STROKE IN JUNE 2016, HERE FOR STROKE ALERT ) Psychiatric: No Reproductive: No Respiratory: No Immunizations Current: Yes Migraines: No Radiation Therapy: No Renal Failure: No Seizures: No Sickle Cell Disease: No Sleep Apnea: No Thyroid Disease: No Ulcer: No : 2 Para: 2 Tubal Ligation: Yes Past Surgical History Abdominal Surgery: No AICD: No Arteriovenous Shunt: No Cardiac Surgery: No Ear Surgery: No Endocrine Surgery: No Eye Surgery: No Genitourinary Surgery: No Gynecologic Surgery: No Insulin Pump: No Joint Replacement: No Neurologic Surgery: Yes Oral Surgery: No Pacemaker: No Thoracic Surgery: No Other Surgery: Yes Social History Alcohol Use: No Tobacco Use: No Substance Use: No Allergies-Medications (Allergen,Severity, Reaction): Coded Allergies: Flu Vaccine (Verified Allergy, Severe, 10/28/16) Uncoded Allergies: anethesia (Adverse Reaction, Severe, Nausea/Vomiting, 06/15/16) Reported Meds & Prescriptions Reported Meds & Active Scripts Active Neurontin (Gabapentin) 300 Mg Cap 300 Mg PO HS Baclofen 10 Mg Tab 5 Mg PO Q12HR 30 Days Keppra (Levetiracetam) 500 Mg Tab 500 Mg PO Q12HR Carafate (Sucralfate) 1 Gm Tab 1 Gm PO BIDAC 30 Days Protonix (Pantoprazole Sodium) 20 Mg Tab 40 Mg PO Q12HR 30 Days Lipitor (Atorvastatin Calcium) 10 Mg Tab 10 Mg PO HS 30 Days Reported Nitrofurantoin Macrocrystal 100 Mg Cap 100 Mg PO DAILY Hydrocodone-Acetaminophen 10-300 Tab 1 Tab PO Q4H PRN Fosamax (Alendronate Sodium) 70 Mg Tab 70 Mg PO Q7D Review of Systems General / Constitutional: No: Fever Eyes: No: Visual changes HENT: No: Headaches Cardiovascular: No: Chest Pain or Discomfort Respiratory: No: Shortness of Breath Gastrointestinal: No: Abdominal Pain Genitourinary: No: Dysuria Musculoskeletal: No: Pain Skin: No Rash Neurologic: Positive: Syncope, No: Weakness Psychiatric: No: Depression Endocrine: No: Polydipsia Hematologic/Lymphatic: No: Easy Bruising Physical Exam Narrative GENERAL: No acute distress, nontoxic SKIN: Warm and dry. HEAD: Atraumatic. Normocephalic. EYES:No injection or drainage. ENT: No nasal bleeding or discharge. Mucous membranes pink and moist. NECK: Trachea midline. No JVD. CARDIOVASCULAR: Regular rate and rhythm. No murmur appreciated. RESPIRATORY: No accessory muscle use. Clear to auscultation. Breath sounds equal bilaterally. GASTROINTESTINAL: Abdomen soft, non-tender, nondistended. Hepatic and splenic margins not palpable. MUSCULOSKELETAL: No obvious deformities. No clubbing. No cyanosis. No edema. NEUROLOGICAL: Awake and alert. No obvious new cranial nerve deficits. Normal speech. Patient with left arm and left leg weakness which patient reports is her baseline as she has had previous CVA in the past. PSYCHIATRIC: Appropriate mood and affect; insight and judgment normal. Data Data Last Documented VS Vital Signs Date Time Temp Pulse Resp B/P Pulse Ox O2 Delivery O2 Flow Rate FiO2 10/31/16 10:46 92 18 121/69 98 Nasal Cannula 2 10/31/16 09:57 98.8 Orders Electrocardiogram (10/31/16 10:01) Complete Blood Count With Diff (10/31/16 10:01) Comprehensive Metabolic Panel (10/31/16 10:01) Magnesium (Mg) (10/31/16 10:01) B-Type Natriuretic Peptide (10/31/16 10:01) Ckmb (Isoenzyme) Profile (10/31/16 10:01) Troponin I (10/31/16 10:01) Act Partial Throm Time (Ptt) (10/31/16 10:01) Prothrombin Time / Inr (Pt) (10/31/16 10:01) Urinalysis - C+S If Indicated (10/31/16 10:01) Ct Brain W/O Iv Contrast(Rout) (10/31/16 10:01) Ecg Monitoring (10/31/16 10:01) Iv Access Insert/Monitor (10/31/16 10:01) Oximetry (10/31/16 10:01) Sodium Chloride 0.9% Flush (Ns Flush) (10/31/16 10:15) Urine Culture (10/31/16 10:42) Ceftriaxone Inj (Rocephin Inj) (10/31/16 11:30) Aspirin (Aspirin) (10/31/16 11:45) Blood Culture (10/31/16 11:41) Labs Laboratory Tests Test 10/31/16 10/31/16 10:05 10:42 White Blood Count 20.1 TH/MM3 Red Blood Count 4.10 MIL/MM3 Hemoglobin 11.8 GM/DL Hematocrit 35.6 % Mean Corpuscular Volume 86.8 FL Mean Corpuscular Hemoglobin 28.8 PG Mean Corpuscular Hemoglobin 33.2 % Concent Red Cell Distribution Width 14.8 % Platelet Count 370 TH/MM3 Mean Platelet Volume 8.0 FL Neutrophils (%) (Auto) 86.7 % Lymphocytes (%) (Auto) 4.5 % Monocytes (%) (Auto) 5.2 % Eosinophils (%) (Auto) 3.3 % Basophils (%) (Auto) 0.3 % Neutrophils # (Auto) 17.4 TH/MM3 Lymphocytes # (Auto) 0.9 TH/MM3 Monocytes # (Auto) 1.0 TH/MM3 Eosinophils # (Auto) 0.7 TH/MM3 Basophils # (Auto) 0.1 TH/MM3 CBC Comment DIFF FINAL Differential Comment Prothrombin Time 11.1 SEC Prothromb Time International 1.0 RATIO Ratio Activated Partial 23.8 SEC Thromboplast Time Sodium Level 142 MEQ/L Potassium Level 3.7 MEQ/L Chloride Level 108 MEQ/L Carbon Dioxide Level 27.1 MEQ/L Anion Gap 7 MEQ/L Blood Urea Nitrogen 18 MG/DL Creatinine 0.80 MG/DL Estimat Glomerular Filtration 70 ML/MIN Rate Random Glucose 95 MG/DL Calcium Level 9.2 MG/DL Magnesium Level 1.7 MG/DL Total Bilirubin 0.3 MG/DL Aspartate Amino Transf 15 U/L (AST/SGOT) Alanine Aminotransferase 25 U/L (ALT/SGPT) Alkaline Phosphatase 65 U/L Total Creatine Kinase 26 U/L Troponin I LESS THAN 0.02 NG/ML B-Type Natriuretic Peptide 40 PG/ML Total Protein 7.2 GM/DL Albumin 3.5 GM/DL Urine Color YELLOW Urine Turbidity HAZY Urine pH 7.5 Urine Specific [place] 1.021 Urine Protein 30 mg/dL Urine Glucose (UA) NEG mg/dL Urine Ketones NEG mg/dL Urine Occult Blood MOD Urine Nitrite NEG Urine Bilirubin NEG Urine Urobilinogen LESS THAN 2.0 MG/DL Urine Leukocyte Esterase MOD Urine RBC 6 /hpf Urine WBC 9 /hpf Urine Squamous Epithelial 18 /hpf Cells Urine Transitional Epithelial <1 /hpf Cells Urine Bacteria RARE /hpf Urine Mucus FEW /lpf Microscopic Urinalysis Comment CULTURE INDICATED MDM Medical Decision Making Medical Screen Exam Complete: Yes Emergency Medical Condition: Yes Interpretation(s) EKG at 1011: NSR at 93bpm, qt/qtc: 338/389, no acute st or t wave changes Vital Signs Date Time Temp Pulse Resp B/P Pulse Ox O2 Delivery O2 Flow Rate FiO2 10/31/16 09:57 98.8 98 18 146/70 97 Nasal Cannula 2 10/31/16 09:57 93 18 97 Nasal Cannula 2 10/31/16 09:54 98.8 99 18 146/70 96 Differential Diagnosis CVA, TIA, intracranial hemorrhage, ACS, arrhythmia, seizure episode, electrolyte abnormality, UTI Narrative Course Patient is a 76-year-old female who presents to emergency room after having a syncopal episode at home. As per patient, she was eating breakfast this morning and was told that she had a syncopal episode by her . Patient denies any fall or trauma to the head or neck. Patient reports that she was sitting at her table eating breakfast when this episode happened, patient reports that she woke up still sitting at the table. Reports that the next her neighbor RN helped her to the couch after the event. Patient with no complaints at this time. Patient was placed on a awake overnight monitor upon arrival to the emergency room. BS ordered. Ct head ordered, ekg as well as labs ordered as well. Will continue to monitor patient Physician Communication Physician Communication case reviewed with Dr. Petersen who accepts pt to service Diagnosis Primary Impression: Syncope Qualified Code: R55 - Syncope, unspecified syncope type Additional Impression: UTI (urinary tract infection) Qualified Code: N30.01 - Acute cystitis with hematuria Admitting Information Admitting Physician Requests: Lindsay Solis DO Oct 31, 2016 10:15
--- NOTE | 2016-10-31 10:35 | RADRPT ---
EXAM DATE/TIME: 10/31/2016 10:16 [facility] COMPARISON: CT BRAIN W/O CONTRAST, October 28, 2016, 14:18. INDICATIONS : Dizziness. Left-sided weakness and aphasia. RADIATION DOSE: 30.65 CTDIvol (mGy) MEDICAL HISTORY : Cerebrovascular disease. Hypertension. SURGICAL HISTORY : Craniotomy. ENCOUNTER: Initial ACUITY: 1 day PAIN SCALE: 4/10 LOCATION: cranial TECHNIQUE: Multiple contiguous axial images were obtained of the head. Using automated exposure control and adj ustment of the mA and/or kV according to patient size, radiation dose was kept as low as reasonably a chievable to obtain optimal diagnostic quality images. FINDINGS: CEREBRUM: There is mild to moderate atrophic change again noted. There are postoperative changes status post ri ght craniotomy. A focal area of encephalomalacia is again noted involving the right high parietal lob e. No evidence of midline shift, mass lesion, hemorrhage or acute infarction. No extra-axial fluid c ollections are seen. POSTERIOR FOSSA: The cerebellum and brainstem are intact. The 4th ventricle is midline. The cerebellopontine angle i s unremarkable. EXTRACRANIAL: The visualized portion of the orbits is intact. SKULL: The calvaria is intact. No evidence of skull fracture. CONCLUSION: 1. No acute hemorrhage or mass effect. 2. Postoperative changes and encephalomalacia again noted. David Juárez MD on October 31, 2016 at 10:32 Board Certified Radiologist. This report was verified electronically.
[2016-10-31 10:50] LABS: AUTOMATED NEUTROPHIL # 17.4 TH/MM3 (1.8-7.7); BASOPHIL # 0.1 TH/MM3 (0-0.2); BASOPHIL % 0.3 % (0.0-2.0); EOSINOPHIL # 0.7 TH/MM3 (0-0.4); EOSINOPHIL % 3.3 % (0.0-4.0); HEMATOCRIT 35.6 % (35.0-46.0); HEMO FLAGS DIFF FINAL; LYMPH % 4.5 % (9.0-44.0); LYMPHOCYTE # 0.9 TH/MM3 (1.0-4.8); MEAN CELL VOLUME 86.8 FL (80.0-100.0); MEAN CORPUSCULAR HEMOGLOBIN 28.8 PG (27.0-34.0); MEAN CORPUSCULAR HGB CONC 33.2 % (32.0-36.0); MONO % 5.2 % (0.0-8.0); NEUT % 86.7 % (16.0-70.0); PLATELET COUNT 370 TH/MM3 (150-450); RED CELL DISTRIBUTION WIDTH 14.8 % (11.6-17.2); WHITE BLOOD COUNT 20.1 TH/MM3 (4.0-11.0)
[2016-10-31 10:57] LABS: APTT (PATIENT) 23.8 SEC (24.3-30.1); PROTHROMBIN TIME - PATIENT 11.1 SEC (9.8-11.6)
[2016-10-31 11:00] LABS: BACTERIA, URINE RARE /hpf; BLOOD, URINE MOD (NEG); GLUCOSE,URINE NEG (NEG); KETONE, URINE NEG (NEG); MUCUS URINE FEW /lpf (OCC); NITRITE,URINE NEG (NEG); PH, URINE 7.5 (5.0-8.5); SQUAMOUS EPITHELIAL CELL URINE 18 /hpf (0-5); TRANSITIONAL EPI CELLS, URINE <1 /hpf; URINE COLOR YELLOW (YELLW/STRAW)
[2016-10-31 11:01] LABS: COMMENT (UR) CULTURE INDICATED; CULTURE IF INDICATED CULTURE INDICATED
[2016-10-31 11:05] LABS: ANION GAP 7 MEQ/L (5-15); AST (GOT) 15 U/L (15-37); BICARBONATE 27.1 MEQ/L (21.0-32.0); BLOOD UREA NITROGEN 18 MG/DL (7-18); CHLORIDE 108 MEQ/L (98-107); GLOMERULAR FILTRATION RATE 70 ML/MIN (>89); MAGNESIUM 1.7 MG/DL (1.5-2.5); POTASSIUM 3.7 MEQ/L (3.5-5.1); SODIUM (NA) 142 MEQ/L (136-145)
[2016-10-31 11:10] LABS: ALKALINE PHOSPHATASE 65 U/L (45-117); ALT (GPT) 25 U/L (10-53); CREATINE KINASE 26 U/L (26-192); TOTAL BILIRUBIN ADULT 0.3 MG/DL (0.2-1.0)
[2016-10-31] MEDS ORDERED: cefTRIAXone INJ 1,000 MG in SODIUM CHLORIDE 0.9% INJ 100 ML IV ONE (11:30)
[2016-10-31] MEDS ORDERED: ASPIRIN 325 MG TAB PO ONE (11:45)
[2016-10-31] MEDS ORDERED: SODIUM CHLOR 0.9% 1000 ML INJ 1,000 ML IV ONE (13:45)
--- NOTE | 2016-10-31 13:56 | HHI.HP ---
[facility] Primary Care Physician Christiano Maravilla MD Admission Diagnosis Syncope, UTI Diagnoses: (1) Syncope Diagnosis: Principal Chief Complaint: ' I passed out.' Travel History International Travel<30 Days: No Contact w/Intl Traveler <30 Da: No Traveled to Known Affected Are: No Sepsis Criteria SIRS Criteria (2 or more): Heart rate over 90, WBC > 21898, < 4000 or > 10% bands Sepsis Criteria (SIRS+source): Infect source susp/known Criteria Outcome: Meets sepsis criteria History of Present Illness patient is a 76 y/o female, known to me from previous admission, was recently admitted because of possible TIA, was brought back to ER after she passed out at home. she says that she was having her breakfast this morning when she passed out. she denies any prodromal symptoms before the incident including sob , chest pain or dizziness. she denies any tongue-biting or urinary incontinence. at the time of my evaluation she was awake and alert. Review of Systems Constitutional: DENIES: Fever, Weight loss, Chills, Night Sweats Eyes: DENIES: Blurred vision, Diplopia, Vision loss, Double Vision Ears, nose, mouth, throat: DENIES: Tinnitus, Vertigo, Throat pain, Epistaxis Respiratory: DENIES: Apneas, Cough, Snoring, Wheezing, Hemoptysis, Sputum production, Shortness of breath Cardiovascular: DENIES: Chest pain, Palpitations, Syncope, Dyspnea on Exertion , PND, Lower Extremity Edema, Orthopnea, Claudication Gastrointestinal: DENIES: Abdominal pain, Black stools, Bloody stools, Constipation, Diarrhea, Nausea, Vomiting, Difficulty Swallowing, Anorexia Genitourinary: DENIES: Urinary frequency, Urgency, Hematuria, Dysuria Musculoskeletal: DENIES: Joint pain, Muscle aches, Stiffness, Joint Swelling Integumentary: DENIES: Rash Neurologic: DENIES: Abnormal gait, Headache, Localized weakness, Paresthesias, Seizures, Speech Problems, Tremor, Poor Balance Psychiatric: DENIES: Anxiety, Confusion, Mood changes, Depression, Hallucinations, Agitation, Suicidal Ideation, Homicidal Ideation, Delusions syncope. Past Family Social History Past Medical History CVA hypertension neuropathy Past Surgical History Past Surgical History craniotomy Reported Medications Reported Medications Neurontin (Gabapentin) 300 Mg Cap 300 Mg PO HS Baclofen 10 Mg Tab 5 Mg PO Q12HR 30 Days Keppra (Levetiracetam) 500 Mg Tab 500 Mg PO Q12HR Carafate (Sucralfate) 1 Gm Tab 1 Gm PO BIDAC 30 Days Protonix (Pantoprazole Sodium) 20 Mg Tab 40 Mg PO Q12HR 30 Days Lipitor (Atorvastatin Calcium) 10 Mg Tab 10 Mg PO HS 30 Days Wheelchair (Device) 1 Mis Mis 1 Ea .ROUTE DIRECTED Quad Cane/Small Base (Misc. Devices) 1 Mis Mis 1 Ea .ROUTE DIRECTED Commode 3-in-1 (Device) 1 Mis Mis 1 Ea .ROUTE DIRECTED Hydrocodone-Acetaminophen 10-300 Tab 1 Tab PO Q4H PRN Fosamax (Alendronate Sodium) 70 Mg Tab 70 Mg PO Q7D Allergies: Coded Allergies: Flu Vaccine (Verified Allergy, Severe, 10/28/16) Uncoded Allergies: anethesia (Adverse Reaction, Severe, Nausea/Vomiting, 06/15/16) Active Ordered Medications Current Medications IV Flush 2 ml 2 ml UNSCH PRN IVF FLUSH AFTER USING IV ACCESS; Start 10/31/16 at 10:15 Ceftriaxone Sodium/Sodium Chloride (Rocephin Inj/NS Inj) 100 ml @ 200 mls/hr ONCE ONCE IV Last administered on 10/31/16 11:58; Start 10/31/16 at 11:30; Stop 10/31/16 at 11:59; Status DC Aspirin (Aspirin) 325 mg ONCE ONCE PO Last administered on 10/31/16 12:00; Start 10/31/16 at 11:45; Stop 10/31/16 at 11:46; Status DC Social History no smoking or drinking. Physical Exam Vital Signs Vital Signs Date Time Temp Pulse Resp B/P Pulse Ox O2 Delivery O2 Flow Rate FiO2 10/31/16 10:46 92 18 121/69 98 Nasal Cannula 2 10/31/16 10:34 18 97 Nasal Cannula 2 10/31/16 09:57 98.8 98 18 146/70 97 Nasal Cannula 2 10/31/16 09:57 93 18 97 Nasal Cannula 2 10/31/16 09:54 98.8 99 18 146/70 96 Physical Exam GENERAL: This is a well-nourished, well-developed patient, in no apparent distress. SKIN: No rashes, ecchymoses or lesions. Cool and dry. HEAD: Atraumatic. Normocephalic. No temporal or scalp tenderness. EYES: Pupils equal round and reactive. Extraocular motions intact. No scleral icterus. No injection or drainage. ENT: Nose without bleeding, purulent drainage or septal hematoma. Throat without erythema, tonsillar hypertrophy or exudate. Uvula midline. Airway patent. NECK: Trachea midline. No JVD or lymphadenopathy. Supple, nontender, no meningeal signs. CARDIOVASCULAR: Regular rate and rhythm without murmurs, gallops, or rubs. RESPIRATORY: Clear to auscultation. Breath sounds equal bilaterally. No wheezes , rales, or rhonchi. GASTROINTESTINAL: Abdomen soft, non-tender, nondistended. No hepato-splenomegaly , or palpable masses. No guarding. MUSCULOSKELETAL: Extremities without clubbing, cyanosis, or edema. No joint tenderness, effusion, or edema noted. No calf tenderness. Negative Homans sign bilaterally. NEUROLOGICAL: Awake and alert. Cranial nerves II through XII intact. Motor and sensory grossly within normal limits. left sided weakness. Laboratory Laboratory Tests Test 10/31/16 10/31/16 10:05 10:42 White Blood Count 20.1 Red Blood Count 4.10 Hemoglobin 11.8 Hematocrit 35.6 Mean Corpuscular Volume 86.8 Mean Corpuscular Hemoglobin 28.8 Mean Corpuscular Hemoglobin 33.2 Concent Red Cell Distribution Width 14.8 Platelet Count 370 Mean Platelet Volume 8.0 Neutrophils (%) (Auto) 86.7 Lymphocytes (%) (Auto) 4.5 Monocytes (%) (Auto) 5.2 Eosinophils (%) (Auto) 3.3 Basophils (%) (Auto) 0.3 Neutrophils # (Auto) 17.4 Lymphocytes # (Auto) 0.9 Monocytes # (Auto) 1.0 Eosinophils # (Auto) 0.7 Basophils # (Auto) 0.1 CBC Comment DIFF FINAL Differential Comment Prothrombin Time 11.1 Prothromb Time International 1.0 Ratio Activated Partial 23.8 Thromboplast Time Sodium Level 142 Potassium Level 3.7 Chloride Level 108 Carbon Dioxide Level 27.1 Anion Gap 7 Blood Urea Nitrogen 18 Creatinine 0.80 Estimat Glomerular Filtration 70 Rate Random Glucose 95 Calcium Level 9.2 Magnesium Level 1.7 Total Bilirubin 0.3 Aspartate Amino Transf 15 (AST/SGOT) Alanine Aminotransferase 25 (ALT/SGPT) Alkaline Phosphatase 65 Total Creatine Kinase 26 Troponin I LESS THAN 0.02 B-Type Natriuretic Peptide 40 Total Protein 7.2 Albumin 3.5 Urine Color YELLOW Urine Turbidity HAZY Urine pH 7.5 Urine Specific Carter 1.021 Urine Protein 30 Urine Glucose (UA) NEG Urine Ketones NEG Urine Occult Blood MOD Urine Nitrite NEG Urine Bilirubin NEG Urine Urobilinogen LESS THAN 2.0 Urine Leukocyte Esterase MOD Urine RBC 6 Urine WBC 9 Urine Squamous Epithelial 18 Cells Urine Transitional Epithelial <1 Cells Urine Bacteria RARE Urine Mucus FEW Microscopic Urinalysis Comment CULTURE INDICATED Date/Time Procedure Status Source Growth 10/31/16 11:55 Aerobic Blood Culture Received Blood Peripheral Pending 10/31/16 11:55 Anaerobic Blood Culture Received Blood Peripheral Pending 10/31/16 10:42 Urine Culture Received Urine Clean Catch Pending Result Diagram: 10/31/16 1005 10/31/16 1005 Imaging Last Impressions Head CT 10/31/16 1001 Signed Impressions: Service Date/Time: Monday, October 31, 2016 10:16 - CONCLUSION: 1. No acute hemorrhage or mass effect. 2. Postoperative changes and encephalomalacia again noted. David Juárez MD EKG; sinus arrhythmia Assessment and Plan Assessment and Plan A/P - syncopal episode neuro-checks- check EEG- keep on telemetry and consult neurology -sepsis due to UTI ( tachycardia/ leukocytosis) continue IV antibiotics- follow the culture- CBC in am -seizure disorder; resume antiepileptics -DVT prophylaxis with SCD's Discussed Condition With ER physician and the patient. Problem Qualifiers (1) Syncope: Qualified Code: R55 - Syncope, unspecified syncope type Dianna Larson MD Oct 31, 2016 13:56
[2016-10-31] MEDS: SUCRALFATE 1 GM TAB PO SCH (16:08)
[2016-10-31] MEDS: ASPIRIN EC 325 MG TABEC PO SCH (16:30)
--- NOTE | 2016-10-31 16:49 | MG ---
cc: MAURISIO OKEEFE Lab No:[id number] Date: 10/31/2016 Age: Sex: F Race: TECHNIQUE 17 channel EEG. DESCRIPTION Background rhythm shows right hemispheric slowing and there is a normal alpha rhythm on the left, theta range activity seen in the right hemisphere. There is occasional sharp activity identified over the right parietal area with some degree of phase reversal. During drowsiness there is mild slowing in the theta range bilaterally which is symmetric. Hyperventilation was not done. Photic resulted in a fairly well-developed driving response mainly of the left hemisphere. INTERPRETATION Abnormal study on the basis of focal slowing over the right which is consistent with a previous stroke in that area. There are some sharp activity in the right suggesting a seizure focus as well. MD MIHAELA Weber/vj /4:33 PM /4:46 PM
--- NOTE | 2016-10-31 17:01 | MB ---
cc: ANAHY DENT DATE OF CONSULTATION 10/31/16 REASON FOR CONSULTATION Syncope. HISTORY OF PRESENT ILLNESS Ms. Harirs is a 76 year old woman who has a history of previous right hemisphere stroke in 2009 treated with TPA with secondary hemorrhage requiring craniotomy, a history of secondary seizure. Earlier today she had a syncopal episode. Apparently she was at the breakfast table. It has been noted that she suddenly nodded down, was not responsive. He took her to the couch later and she woke up in about six minutes and was back to normal. There was no tonic-clonic activity. No seizure activity. PAST MEDICAL HISTORY 1. History of right hemisphere stroke in the past with secondary hemorrhage after TPA with craniotomy with residual left-sided weakness, 2. Neuropathy, 3. Hypertension. MEDICATIONS At home 1. Gabapentin 300 mg at bedtime. 2. Baclofen 15 mg b.i.d. 3. Keppra 500 mg, b.i.d. 4. Carafate. 5. Protonix 6. Lipitor 7. Hydrocodone, 8. Fosamax NEUROLOGIC EXAMINATION Blood pressure 112/51, pulse 83, respirations 18, temperature 98 degrees. Higher cortical function - she is alert, oriented, speech normal. Cranial nerves are intact. Motor exam - she has left hemiparesis with 4/5 strength left arm, 4+/5 left leg strength proximally and distally with normal strength of the right arm and right leg. Reflexes symmetric. IMAGING STUDIES CT of the brain shows postoperative changes and encephalomalacia in the right hemisphere, no acute change present. LABORATORY DATA White count 20,000, hemoglobin 11.8, hematocrit 35.6%, platelets 370,000. Sodium is 142, potassium to 3.7, chloride 108, CO2 27, BUN __. Creatinine 0.8. GFR 70. LFTs normal. PT 11.1, INR 1, APTT 23.8. Urinalysis - pH is 7.5, specific gravity 1.021. There are nine WBCs. IMPRESSION Syncope, rule out seizure, rule out recurrent stroke. RECOMMENDATION I would like to get an MRI of the brain, also an EEG for further evaluation. We will also monitor cardiac telemetry, rule out cardiac arrhythmia. Also start aspirin for the possibility of TIA. Thank you for asking me to see this patient. MD JIMMY Angel /4:24 PM /4:48 PM
--- NOTE | 2016-10-31 17:16 | EKG ---
Date Performed: 10/31/2016 Time Performed: 10:11:39 PTAGE: 76 years EKG: Sinus rhythm WITH MARKED SINUS ARRHYTHMIA BORDERLINE ECG PREVIOUS TRACING : 10/28/2016 14.34 Arrythmia is new since prior tracing. Clinical correlation recommended. DOCTOR: Dick Cuevas Interpretating Date/Time 10/31/2016 17:04:18
[2016-10-31] MEDS ORDERED: ACETAMINOPHEN 325 MG TAB PO ONE (20:30)
[2016-10-31] MEDS: ATORVASTATIN 10 MG TAB PO SCH (21:14)
[2016-10-31] MEDS: levETIRAcetam 500 MG TAB PO SCH (21:14)
[2016-10-31] MEDS: PANTOPRAZOLE SOD 40 MG DELAYED RELEASE TAB PO SCH (21:14)
[2016-11-01] VITALS (7 sets, daily range): BP systolic 120–156; BP diastolic 60–86; PULSE 70–83; RESP 18–19; TEMP 97.4–98.2; O2SAT 93–98
[2016-11-01 04:02] LABS: AUTOMATED NEUTROPHIL # 6.8 TH/MM3 (1.8-7.7); BASOPHIL # 0.1 TH/MM3 (0-0.2); BASOPHIL % 0.5 % (0.0-2.0); EOSINOPHIL # 1.3 TH/MM3 (0-0.4); EOSINOPHIL % 11.2 % (0.0-4.0); HEMO FLAGS DIFF FINAL; LYMPH % 21.9 % (9.0-44.0); LYMPHOCYTE # 2.5 TH/MM3 (1.0-4.8); MEAN CELL VOLUME 86.8 FL (80.0-100.0); MEAN CORPUSCULAR HEMOGLOBIN 28.4 PG (27.0-34.0); MEAN CORPUSCULAR HGB CONC 32.8 % (32.0-36.0); MONO % 6.8 % (0.0-8.0); NEUT % 59.6 % (16.0-70.0); PLATELET COUNT 329 TH/MM3 (150-450); RED BLOOD COUNT 3.57 MIL/MM3 (4.00-5.30); RED CELL DISTRIBUTION WIDTH 14.7 % (11.6-17.2); WHITE BLOOD COUNT 11.5 TH/MM3 (4.0-11.0)
[2016-11-01] MEDS: SUCRALFATE 1 GM TAB PO SCH ×2 (05:36→17:13)
[2016-11-01] MEDS ORDERED: GADODIAMIDE PF 287 MG/ML 10 ML VIAL (for RAD MRI) IV ONE (09:51)
--- NOTE | 2016-11-01 10:17 | RADRPT ---
EXAM DATE/TIME: 11/01/2016 09:37 [facility] COMPARISON: CT BRAIN W/O CONTRAST, October 31, 2016, 10:16. MRI BRAIN W/O CONTRAST, October 28, 2016, 16:17. INDICATIONS : Aphasia. Left sided weakness and facial droop. CONTRAST: 10 cc Omniscan (gadodiamide) IV MEDICAL HISTORY : Cerebrovascular disease. Hypertension. Hypercholesterolemia. SURGICAL HISTORY : Craniotomy. Rotator cuff x 2 ENCOUNTER: Subsequent ACUITY: 3 day PAIN SCORE: 2/10 LOCATION: cranial TECHNIQUE: Multiplanar, multisequence MRI of the brain was performed both prior to and following the administrat ion of paramagnetic contrast. FINDINGS: Nonacute infarct with hemosiderin deposition of the right parietal lobe again noted. There is some pa tchy laminar enhancement again noted within the infarct along with some linear areas of restricted di ffusion, unchanged. This is probably artifactual restricted diffusion. Mild joselin-infarct ischemia pos sible but considered unlikely. Patient has had previous right craniotomy; there is mild, chronic appe aring right meningeal thickening. No new or other areas of restricted diffusion. No hemorrhage. No mass effect or midline shift. CONCLUSION: Nonacute hemorrhagic infarct of the right parietal lobe again noted and has a stable MRI appearance. Please see above. Although there is some ribbonlike restricted diffusion within the infarct area, thi s is felt to be artifactual. Acute or subacute ischemia is considered unlikely. The rest of the brai n is within normal limits. Bill Cordero MD on November 01, 2016 at 10:11 Board Certified Radiologist. This report was verified electronically.
[2016-11-01] MEDS: PANTOPRAZOLE SOD 40 MG DELAYED RELEASE TAB PO SCH ×2 (10:23→20:36)
[2016-11-01] MEDS: ASPIRIN EC 325 MG TABEC PO SCH (10:24)
[2016-11-01] MEDS: levETIRAcetam 500 MG TAB PO SCH ×2 (10:24→20:36)
[2016-11-01] MEDS: cefTRIAXone INJ 1,000 MG in SODIUM CHLORIDE 0.9% INJ 100 ML IV SCH (10:24)
--- NOTE | 2016-11-01 12:50 | HHI.PR ---
Subjective Remarks overall doing fine. has mild headache. otherwise no other complaints. Objective Vitals Vital Signs Date Time Temp Pulse Resp B/P Pulse Ox O2 Delivery O2 Flow Rate FiO2 11/01/16 12:25 97.7 79 18 138/68 96 11/01/16 08:22 97.6 75 18 154/74 95 11/01/16 03:11 98.2 70 19 123/86 93 11/01/16 01:25 98.2 75 19 120/60 95 10/31/16 22:43 77 10/31/16 22:27 16 10/31/16 21:12 98.2 78 19 136/61 95 10/31/16 15:32 98.0 83 18 112/51 95 Result Diagram: 11/01/16 0305 10/31/16 1005 Imaging Last Impressions Brain MRI 11/01/16 0000 Signed Impressions: Service Date/Time: Tuesday, November 01, 2016 09:37 - CONCLUSION: Nonacute hemorrhagic infarct of the right parietal lobe again noted and has a stable MRI appearance. Please see above. Although there is some ribbonlike restricted diffusion within the infarct area, this is felt to be artifactual. Acute or subacute ischemia is considered unlikely. The rest of the brain is within normal limits. Bill Cordero MD Head CT 10/31/16 1001 Signed Impressions: Service Date/Time: Monday, October 31, 2016 10:16 - CONCLUSION: 1. No acute hemorrhage or mass effect. 2. Postoperative changes and encephalomalacia again noted. David Juárez MD Objective Remarks GENERAL: This is a well-nourished, well-developed patient, in no apparent distress. CARDIOVASCULAR: Regular rate and regular rhythm without murmurs, gallops, or rubs. RESPIRATORY: Clear to auscultation. Breath sounds equal bilaterally. No wheezes , rales, or rhonchi. GASTROINTESTINAL: Abdomen soft, non-tender, nondistended. Normal, active bowel sounds MUSCULOSKELETAL: Extremities without clubbing, cyanosis, or edema. NEURO: Alert & Oriented x4 to person, place, time, situation. Moves all ext x4 Procedures none Medications and IVs Current Medications IV Flush 2 ml 2 ml UNSCH PRN IVF FLUSH AFTER USING IV ACCESS; Start 10/31/16 at 10:15 Ceftriaxone Sodium/Sodium Chloride (Rocephin Inj/NS Inj) 100 ml @ 200 mls/hr ONCE ONCE IV Last administered on 10/31/16 11:58; Start 10/31/16 at 11:30; Stop 10/31/16 at 11:59; Status DC Aspirin 325 mg 325 mg ONCE ONCE PO Last administered on 10/31/16 12:00; Start 10/31/16 at 11:45; Stop 10/31/16 at 11:46; Status DC Ceftriaxone Sodium 1000 mg/ Sodium Chloride 100 ml @ 200 mls/hr Q24H IV Last administered on 11/01/16 10:24; Start 11/01/16 at 09:00 Sodium Chloride (NS 1000 ml Inj) 1,000 ml @ 75 mls/hr [id number] ONCE IV Last administered on 10/31/16 15:29; Start 10/31/16 at 13:45; Stop 11/01/16 at 03:04 ; Status DC Atorvastatin Calcium (Lipitor) 10 mg HS PO Last administered on 10/31/16 21:14 ; Start 10/31/16 at 21:00 Levetriacetam (Keppra) 500 mg Q12HR PO Last administered on 11/01/16 10:24; Start 10/31/16 at 21:00 Pantoprazole Sodium (Protonix) 40 mg Q12HR PO Last administered on 11/01/16 10 :23; Start 10/31/16 at 21:00 Sucralfate (Carafate) 1 gm BIDAC PO Last administered on 11/01/16 05:36; Start 10/31/16 at 16:00 Aspirin (Ecotrin Ec) 325 mg DAILY PO Last administered on 11/01/16 10:24; Start 10/31/16 at 16:30 Acetaminophen (Tylenol) 650 mg ONCE ONCE PO Last administered on 10/31/16 21: 14; Start 10/31/16 at 20:30; Stop 10/31/16 at 20:31; Status DC Gadodiamide (Omniscan Pf Inj) 10 ml STK-MED ONCE IV Last administered on 09:51; Start 11/01/16 at 09:51; Stop 11/01/16 at 09:52; Status DC A/P Assessment and Plan A/P - syncopal episode- possible seizure MRI brain stable- EEG with possible seizure- continue antiepileptics- neurology following. -sepsis due to UTI ( tachycardia/ leukocytosis) continue IV antibiotics- follow the culture- CBC in am -DVT prophylaxis with SCD's Dianna Larson MD Nov 01, 2016 12:50
[2016-11-01] MEDS ORDERED: ACETAMINOPHEN 325 MG TAB PO PRN (13:00)
[2016-11-01] MEDS ORDERED: diphenhydrAMINE HCL 50 MG CAP PO PRN (13:00)
[2016-11-01] MEDS: ATORVASTATIN 10 MG TAB PO SCH (20:36)
[2016-11-02 04:10] VITALS: BP 152/78; PULSE 94; RESP 19; TEMP 98.2; O2SAT 95
[2016-11-02 04:24] LABS: BASOPHIL # 0.1 TH/MM3 (0-0.2); BASOPHIL % 0.5 % (0.0-2.0); EOSINOPHIL # 0.8 TH/MM3 (0-0.4); EOSINOPHIL % 6.7 % (0.0-4.0); HEMO FLAGS DIFF FINAL; LYMPH % 19.5 % (9.0-44.0); LYMPHOCYTE # 2.4 TH/MM3 (1.0-4.8); MEAN CELL VOLUME 86.4 FL (80.0-100.0); MEAN CORPUSCULAR HEMOGLOBIN 28.7 PG (27.0-34.0); MEAN CORPUSCULAR HGB CONC 33.2 % (32.0-36.0); MONO % 8.3 % (0.0-8.0); PLATELET COUNT 371 TH/MM3 (150-450); RED BLOOD COUNT 3.93 MIL/MM3 (4.00-5.30); RED CELL DISTRIBUTION WIDTH 14.6 % (11.6-17.2); WHITE BLOOD COUNT 12.3 TH/MM3 (4.0-11.0)
[2016-11-02] MEDS: SUCRALFATE 1 GM TAB PO SCH (06:04)
[2016-11-02] MEDS: levETIRAcetam 500 MG TAB PO SCH (08:28)
[2016-11-02] MEDS: cefTRIAXone INJ 1,000 MG in SODIUM CHLORIDE 0.9% INJ 100 ML IV SCH (08:29)
[2016-11-02] MEDS: PANTOPRAZOLE SOD 40 MG DELAYED RELEASE TAB PO SCH (08:29)
[2016-11-02] MEDS: ASPIRIN EC 325 MG TABEC PO SCH (08:29)
--- NOTE | 2016-11-02 10:36 | HHI.PR ---
Subjective Remarks overall doing fine. says that ' was confused last night and had a ' dream' ' which she thinks might be related to the medication that she took last night for her insomnia. otherwise no other complaints. hoping she would go home today. Objective Vitals Vital Signs Date Time Temp Pulse Resp B/P Pulse Ox O2 Delivery O2 Flow Rate FiO2 11/02/16 04:10 98.2 94 19 152/78 95 11/01/16 21:20 98.2 83 19 156/74 98 11/01/16 20:00 80 11/01/16 15:32 97.4 78 18 131/64 96 11/01/16 12:25 97.7 79 18 138/68 96 I/O 11/01/16 11/01/16 11/01/16 11/02/16 11/02/16 11/02/16 07:00 15:00 23:00 07:00 15:00 23:00 Intake Total 240 ml 120 ml Balance 240 ml 120 ml Intake Oral 240 ml 120 ml # Voids 4 2 3 Result Diagram: 11/02/16 0347 10/31/16 1005 Imaging Last Impressions Brain MRI 11/01/16 0000 Signed Impressions: Service Date/Time: Tuesday, November 01, 2016 09:37 - CONCLUSION: Nonacute hemorrhagic infarct of the right parietal lobe again noted and has a stable MRI appearance. Please see above. Although there is some ribbonlike restricted diffusion within the infarct area, this is felt to be artifactual. Acute or subacute ischemia is considered unlikely. The rest of the brain is within normal limits. Bill Cordero MD Head CT 10/31/16 1001 Signed Impressions: Service Date/Time: Monday, October 31, 2016 10:16 - CONCLUSION: 1. No acute hemorrhage or mass effect. 2. Postoperative changes and encephalomalacia again noted. David Juárez MD Objective Remarks GENERAL: This is a well-nourished, well-developed patient, in no apparent distress. CARDIOVASCULAR: Regular rate and regular rhythm without murmurs, gallops, or rubs. RESPIRATORY: Clear to auscultation. Breath sounds equal bilaterally. No wheezes , rales, or rhonchi. GASTROINTESTINAL: Abdomen soft, non-tender, nondistended. Normal, active bowel sounds MUSCULOSKELETAL: Extremities without clubbing, cyanosis, or edema. NEURO: Alert & Oriented x4 to person, place, time, situation. Moves all ext x4 Procedures none Medications and IVs Current Medications IV Flush 2 ml 2 ml UNSCH PRN IVF FLUSH AFTER USING IV ACCESS; Start 10/31/16 at 10:15 Ceftriaxone Sodium/Sodium Chloride (Rocephin Inj/NS Inj) 100 ml @ 200 mls/hr ONCE ONCE IV Last administered on 10/31/16 11:58; Start 10/31/16 at 11:30; Stop 10/31/16 at 11:59; Status DC Aspirin 325 mg 325 mg ONCE ONCE PO Last administered on 10/31/16 12:00; Start 10/31/16 at 11:45; Stop 10/31/16 at 11:46; Status DC Ceftriaxone Sodium 1000 mg/ Sodium Chloride 100 ml @ 200 mls/hr Q24H IV Last administered on 11/02/16 08:29; Start 11/01/16 at 09:00 Sodium Chloride (NS 1000 ml Inj) 1,000 ml @ 75 mls/hr [id number] ONCE IV Last administered on 10/31/16 15:29; Start 10/31/16 at 13:45; Stop 11/01/16 at 03:04 ; Status DC Atorvastatin Calcium (Lipitor) 10 mg HS PO Last administered on 11/01/16 20:36 ; Start 10/31/16 at 21:00 Levetriacetam (Keppra) 500 mg Q12HR PO Last administered on 11/02/16 08:28; Start 10/31/16 at 21:00 Pantoprazole Sodium (Protonix) 40 mg Q12HR PO Last administered on 11/02/16 08 :29; Start 10/31/16 at 21:00 Sucralfate (Carafate) 1 gm BIDAC PO Last administered on 11/02/16 06:04; Start 10/31/16 at 16:00 Aspirin (Ecotrin Ec) 325 mg DAILY PO Last administered on 11/02/16 08:29; Start 10/31/16 at 16:30 Acetaminophen (Tylenol) 650 mg ONCE ONCE PO Last administered on 10/31/16 21: 14; Start 10/31/16 at 20:30; Stop 10/31/16 at 20:31; Status DC Gadodiamide (Omniscan Pf Inj) 10 ml STK-MED ONCE IV Last administered on 09:51; Start 11/01/16 at 09:51; Stop 11/01/16 at 09:52; Status DC Acetaminophen (Tylenol) 650 mg Q4H PRN PO FEVER/ HEADACHE Last administered on 11/02/16 06:44; Start 11/01/16 at 13:00 Diphenhydramine HCl (Benadryl) 50 mg HS PRN PO INSOMNIA Last administered on 20:36; Start 11/01/16 at 13:00 A/P Assessment and Plan A/P - syncopal episode- possible seizure MRI brain stable- EEG with possible seizure- continue antiepileptics- d/w ; no further work-up; f/u with this week ( the patient already has an appointment with ). -sepsis due to UTI ( tachycardia/ leukocytosis)- improved switch to po antibiotics- -DVT prophylaxis with SCD's Discharge Planning possible dc home later today if ok with neurology. see med list. f/u with pcp and neurology. d/w the patient. Dianna Larson MD Nov 02, 2016 10:36
[2016-11-02] MEDS ORDERED: CIPR250T52 PO (10:40)
--- NOTE | 2016-11-02 10:41 | HHI.DCPOC ---
Discharge Care Plan Diagnosis: (1) History of CVA (cerebrovascular accident) (2) Syncope (3) UTI (urinary tract infection) Additional Problems passing out. Goals to Promote Your Health * To prevent worsening of your condition and complications * To maintain your health at the optimal level Directions to Meet Your Goals Take your medications as prescribed Follow your dietary instruction Follow activity as directed Keep your appointments as scheduled Take your immunizations and boosters as scheduled If your symptoms worsen call your PCP, if no PCP go to Urgent Care Center or Emergency Room Smoking is Dangerous to Your Health. Avoid second hand smoke Call the 24-hour hour crisis hotline for domestic abuse at Dianna Larson MD Nov 02, 2016 10:41
--- NOTE | 2016-11-02 10:41 | HHI.DS ---
Discharge Summary Admission Date Oct 31, 2016 at 12:02 Discharge Date: Nov 02, 2016 Admitting Diagnosis Syncope, UTI (1) Syncope ICD Code: R55 Diagnosis: Principal Procedures none Brief History - From Admission patient is a 76 y/o female, known to me from previous admission, was recently admitted because of possible TIA, was brought back to ER after she passed out at home. she says that she was having her breakfast this morning when she passed out. she denies any prodromal symptoms before the incident including sob , chest pain or dizziness. she denies any tongue-biting or urinary incontinence. at the time of my evaluation she was awake and alert. CBC/BMP: 11/02/16 0347 10/31/16 1005 Significant Findings Laboratory Tests Test 10/31/16 10/31/16 11/01/16 11/02/16 10:05 10:42 03:05 03:47 White Blood Count 20.1 TH/MM3 11.5 TH/MM3 12.3 TH/MM3 (4.0-11.0) (4.0-11.0) (4.0-11.0) Neutrophils (%) (Auto) 86.7 % (16.0-70.0) Lymphocytes (%) (Auto) 4.5 % (9.0-44.0) Neutrophils # (Auto) 17.4 TH/MM3 8.0 TH/MM3 (1.8-7.7) (1.8-7.7) Lymphocytes # (Auto) 0.9 TH/MM3 (1.0-4.8) Monocytes # (Auto) 1.0 TH/MM3 1.0 TH/MM3 (0-0.9) (0-0.9) Eosinophils # (Auto) 0.7 TH/MM3 1.3 TH/MM3 0.8 TH/MM3 (0-0.4) (0-0.4) (0-0.4) Activated Partial 23.8 SEC Thromboplast Time (24.3-30.1) Chloride Level 108 MEQ/L (98-107) Estimat Glomerular Filtration 70 ML/MIN (>89) Rate Troponin I LESS THAN 0.02 NG/ML (0.02-0.05) Urine Turbidity HAZY (CLEAR) Urine Protein 30 mg/dL (NEG-TRACE) Urine Occult Blood MOD (NEG) Urine Leukocyte Esterase MOD (NEG) Urine RBC 6 /hpf (0-3) Urine WBC 9 /hpf (0-5) Urine Bacteria RARE /hpf (NONE) Urine Mucus FEW /lpf (OCC) Red Blood Count 3.57 MIL/MM3 3.93 MIL/MM3 (4.00-5.30) (4.00-5.30) Hemoglobin 10.2 GM/DL 11.3 GM/DL (11.6-15.3) (11.6-15.3) Hematocrit 31.0 % 34.0 % (35.0-46.0) (35.0-46.0) Eosinophils (%) (Auto) 11.2 % 6.7 % (0.0-4.0) (0.0-4.0) Monocytes (%) (Auto) 8.3 % (0.0-8.0) Imaging Last Impressions Brain MRI 11/01/16 0000 Signed Impressions: Service Date/Time: Tuesday, November 01, 2016 09:37 - CONCLUSION: Nonacute hemorrhagic infarct of the right parietal lobe again noted and has a stable MRI appearance. Please see above. Although there is some ribbonlike restricted diffusion within the infarct area, this is felt to be artifactual. Acute or subacute ischemia is considered unlikely. The rest of the brain is within normal limits. Bill Cordero MD Head CT 10/31/16 1001 Signed Impressions: Service Date/Time: Monday, October 31, 2016 10:16 - CONCLUSION: 1. No acute hemorrhage or mass effect. 2. Postoperative changes and encephalomalacia again noted. David Juárez MD PE at Discharge GENERAL: This is a well-nourished, well-developed patient, in no apparent distress. CARDIOVASCULAR: Regular rate and regular rhythm without murmurs, gallops, or rubs. RESPIRATORY: Clear to auscultation. Breath sounds equal bilaterally. No wheezes , rales, or rhonchi. GASTROINTESTINAL: Abdomen soft, non-tender, nondistended. Normal, active bowel sounds MUSCULOSKELETAL: Extremities without clubbing, cyanosis, or edema. NEURO: Alert & Oriented x4 to person, place, time, situation. Moves all ext x4 Hospital Course - syncopal episode- possible seizure MRI brain stable- EEG with possible seizure- continue antiepileptics- d/w ; no further work-up; f/u with this week ( the patient already has an appointment with ). -sepsis due to UTI ( tachycardia/ leukocytosis)- improved switch to po antibiotics- -DVT prophylaxis with SCD's Pt Condition on Discharge: Good Discharge Disposition: Discharge Home Discharge Time: <= 30 minutes Discharge Instructions DIET: Follow Instructions for: Heart Healthy Diet Activities you can perform: Regular-No Restrictions Activities to Avoid: Driving Follow up Referrals: Neurology PCP Follow-up New Medications: Ciprofloxacin (Cipro) 250 Mg Tab 250 MG PO BID Infection Days 5 Ref 0 TAB Changed Medications: Nitrofurantoin Macrocrystal (Nitrofurantoin Macrocrystal) 100 Mg Cap 100 MG PO DAILY resume after has finished the course of Cipro. Infection Days 30 Ref 0 CAP (Medication details modified) Continued Medications: Alendronate (Fosamax) 70 Mg Tab 70 MG PO Q7D Osteoporosis Treatment #4 Ref 0 TAB Atorvastatin (Lipitor) 10 Mg Tab 10 MG PO HS Days 30 TAB Baclofen (Baclofen) 10 Mg Tab 5 MG PO Q12HR muscle spams Days 30 Ref 6 TAB Gabapentin (Neurontin) 300 Mg Cap 300 MG PO HS nerve pain #30 Ref 6 CAP Hydrocodone-Acetaminophen (Hydrocodone-Acetaminophen) 10-300 Tab 1 TAB PO Q4H PRN PAIN Ref 0 TAB Levetiracetam (Keppra) 500 Mg Tab 500 MG PO Q12HR Control Seizures #60 Ref 6 TAB Pantoprazole (Protonix) 20 Mg Tab 40 MG PO Q12HR Days 30 TAB Sucralfate (Carafate) 1 Gm Tab 1 GM PO BIDAC Days 30 TAB Dianna Larson MD Nov 02, 2016 10:41
[2016-11-02] MEDS ORDERED: NITR1CAP36 PO (10:53)
--- NOTE | 2016-11-02 11:16 | HHI.PR ---
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 Plan continue keppra ok to dc from neurology standpoint SHe has follow up with Dr Mello Burgos in our group Thursday and I told her to keep that follow up Diagnosis/Plan: Subjective Subjective Comments No acute events reported Active Medications Current Medications Medications (Trade) Dose Ordered Sig/[place] Route Start Time Stop Time Status Last Admin IV Flush 2 ml 2 ml UNSCH PRN IVF 10/31/16 10:15 (Rocephin Inj/NS Inj) 100 ml @ 200 mls/hr Q24H IV 11/01/16 09:00 11/02/16 08:29 (Lipitor) 10 mg HS PO 10/31/16 21:00 11/01/16 20:36 (Keppra) 500 mg Q12HR PO 10/31/16 21:00 11/02/16 08:28 (Protonix) 40 mg Q12HR PO 10/31/16 21:00 11/02/16 08:29 (Carafate) 1 gm BIDAC PO 10/31/16 16:00 11/02/16 06:04 (Ecotrin Ec) 325 mg DAILY PO 10/31/16 16:30 11/02/16 08:29 (Tylenol) 650 mg Q4H PRN PO 11/01/16 13:00 11/02/16 06:44 (Benadryl) 50 mg HS PRN PO 11/01/16 13:00 11/01/16 20:36 Allergies Allergies Coded Allergies Flu Vaccine (Verified Allergy, Severe, 10/28/16) Penicillin (Verified Adverse Reaction, Severe, Nausea/Vomiting, 10/31/16) Uncoded Allergies anethesia ( Adverse Reaction, Severe, Nausea/Vomiting, 06/15/16) Review of Systems All other ROS: ROS reviewed as documented in chart Exam I&O / VS 11/01/16 11/01/16 11/02/16 15:00 23:00 07:00 Intake Total 240 ml 120 ml Balance 240 ml 120 ml Intake Oral 240 ml 120 ml # Voids 2 3 Vital Signs Date Time Temp Pulse Resp B/P Pulse Ox O2 Delivery O2 Flow Rate FiO2 11/02/16 04:10 98.2 94 19 152/78 95 11/01/16 21:20 98.2 83 19 156/74 98 11/01/16 20:00 80 11/01/16 15:32 97.4 78 18 131/64 96 11/01/16 12:25 97.7 79 18 138/68 96 General: Alert and Oriented, No acute distress Respiratory: Lungs CTA, Non-labored respirations Cardiology: Normal rate, Regular Rhythm Neurologic: Alert, Oriented Psychiatric: Cooperative, Appropriate mood & affect Exam Comments ALERT, FOLLOW COMMANDS CN INTACT Objective Radiology Results EEG--RIGHT HEMISPERE SLOW AND SHARP WAVES MRI --PRIOR RIGHT HEMISPHERE CVA WITH NO ACUTE CVA Micro and Labs Laboratory Tests Test 11/02/16 03:47 White Blood Count 12.3 Red Blood Count 3.93 Hemoglobin 11.3 Hematocrit 34.0 Mean Corpuscular Volume 86.4 Mean Corpuscular Hemoglobin 28.7 Mean Corpuscular Hemoglobin 33.2 Concent Red Cell Distribution Width 14.6 Platelet Count 371 Mean Platelet Volume 7.8 Neutrophils (%) (Auto) 65.0 Lymphocytes (%) (Auto) 19.5 Monocytes (%) (Auto) 8.3 Eosinophils (%) (Auto) 6.7 Basophils (%) (Auto) 0.5 Neutrophils # (Auto) 8.0 Lymphocytes # (Auto) 2.4 Monocytes # (Auto) 1.0 Eosinophils # (Auto) 0.8 Basophils # (Auto) 0.1 CBC Comment DIFF FINAL Differential Comment Date/Time Procedure Status Source Growth 10/31/16 11:55 Aerobic Blood Culture - Preliminary Resulted Blood Peripheral NO GROWTH IN 2 DAYS 10/31/16 11:55 Anaerobic Blood Culture - Preliminary Resulted Blood Peripheral NO GROWTH IN 2 DAYS 10/31/16 10:42 Urine Culture - Final Complete Urine Clean Catch 50-100,000 CFU/ML MIXED GRAM POSITIVE... Malcolm Matthews PhD MD Nov 02, 2016 11:16
--- NOTE | 2016-11-02 13:06 | EC ---
Study Study Date:11/01/2016 STUDY CONCLUSIONS SUMMARY - Left ventricle: The cavity size was normal. Wall thickness was normal. Systolic function was normal. The estimated ejection fraction was in the range of 55% to 60%. Wall motion was normal; there were no regional wall motion abnormalities. Left ventricular diastolic function parameters were normal. - Aortic valve: Mild to moderate regurgitation. - Mitral valve: Mild regurgitation. - Tricuspid valve: Mild-moderate regurgitation. - Pulmonic valve: Mild regurgitation. If LV function is below 40, please consider prescribing an ACEI or ARB or document rationale for non-use. PROCEDURE DATA STUDY STATUS: Elective. Procedure: Transthoracic echocardiography. Image quality was good. Scanning was performed from the parasternal, apical, and subcostal acoustic windows. Study completion: The patient tolerated the procedure well. Transthoracic echocardiography. M-mode, complete 2D, complete spectral Doppler, and color Doppler. Patient status: Inpatient. CARDIAC ANATOMY LEFT VENTRICLE: The cavity size was normal. Wall thickness was normal. Systolic function was normal. The estimated ejection fraction was in the range of 55% to 60%. Wall motion was normal; there were no regional wall motion abnormalities. The transmitral flow pattern was normal. The deceleration time of the early transmitral flow velocity was normal. The pulmonary vein flow pattern was normal. The tissue Doppler parameters were normal. Left ventricular diastolic function parameters were normal. AORTIC VALVE: Trileaflet; normal thickness leaflets. Doppler: Transvalvular velocity was within the normal range. There was no stenosis. Mild to moderate regurgitation. AORTA: Aortic root: The aortic root was normal in size. MITRAL VALVE: Structurally normal valve. Doppler: Transvalvular velocity was within the normal range. There was no evidence for stenosis. Mild regurgitation. LEFT ATRIUM: The atrium was normal in size. RIGHT VENTRICLE: The cavity size was normal. Wall thickness was normal. Systolic pressure was within the normal range. PULMONIC VALVE: Doppler: Transvalvular velocity was within the normal range. There was no evidence for stenosis. Mild regurgitation. TRICUSPID VALVE: Structurally normal valve. Doppler: Transvalvular velocity was within the normal range. Mild-moderate regurgitation. PULMONARY ARTERY: The main pulmonary artery was normal-sized. Systolic pressure was within the normal range. RIGHT ATRIUM: The atrium was normal in size. PERICARDIUM: There was no pericardial effusion. SYSTEMIC VEINS: Inferior vena cava: The vessel was normal in size. Prepared and signed by Joel Wells [id number]
== END 2016-11-02 13:55 | disposition home or self-care (01) ==
LOC: NEDAMB 09:35 → NEDA 12:02 → NEPFCDU 15:19
PROVIDERS: ADMIT Internal Medicine; ATTEND Internal Medicine
DX: R55 Syncope and collapse (principal); N30.01 Acute cystitis with hematuria; A41.9 Sepsis, unspecified organism; I10 Essential (primary) hypertension; G40.909 Epilepsy, unspecified, not intractable, without status epilepticus; G47.00 Insomnia, unspecified; G93.89 Other specified disorders of brain; E78.00 Pure hypercholesterolemia, unspecified; I69.354 Hemiplegia and hemiparesis following cerebral infarction affecting left non-dominant side
CPT/HCPCS: 70450; 70553; 80053; 81001; 82550; 83605; 83735; 83880; 84484; 85025; 85610; 85730; 87040; 87086; 93005; 93306; 95819; 96374; 99285; A9579; G0378; J0696; J7030; Q0163

== ENCOUNTER 2017-04-09 11:47 | Emergency (ER) | payer OTHER ==
[~2017-04-09] VITALS: Ht 157.5 cm; Wt 68.0 kg
[~2017-04-09 11:47] MED LIST changes: -ASPI81CH CHEW; +CIPR250T52 PO; -COMMODE 3-IN-11 MIS; -QUAD CANE/SMALL1 MI1; -WHEEMIS3
[2017-04-09 11:49] VITALS: BP 191/93; PULSE 72; RESP 16; TEMP 98.6; O2SAT 100
--- NOTE | 2017-04-09 12:12 | PD ---
Physical Exam Time Seen by Provider: 12:10 Narrative 76 y/o female here for evaluation of h/a, htn which started this morning after physical therapy 830-9. Hx CVA with residual L sided weakness. Vital signs reviewed. Seen at triage desk. Awaiting bed placement. Data Data Last Documented VS Vital Signs Date Time Temp Pulse Resp B/P Pulse Ox O2 Delivery O2 Flow Rate FiO2 04/09/17 11:49 98.6 72 16 191/93 100 Room Air [facility] Medical Record Reviewed: Yes Supervised Visit with BERTO: Akira Beal Apr 09, 2017 12:12
--- NOTE | 2017-04-09 12:43 | PD ---
HPI Chief Complaint: Headache Time Seen by Provider: 12:37 Travel History International Travel<30 days: No Contact w/Intl Traveler<30days: No Traveled to known affect area: No PFSH Past Medical History Hx Anticoagulant Therapy: No Arthritis: No Asthma: No Autoimmune Disease: No Blood Disorders: No Anxiety: No Depression: No Heart Rhythm Problems: No Cancer: No Cardiovascular Problems: Yes High Cholesterol: Yes Chemotherapy: No Chest Pain: No Congestive Heart Failure: No COPD: No Cerebrovascular Accident: Yes (SAH) Diabetes: No Diminished Hearing: No Endocrine: No Gastrointestinal Disorders: No GERD: No Genitourinary: Yes (URINARY TRACT INFECTIONS ) Headaches: Yes Hiatal Hernia: No Heparin Induced Thrombocytopen: No Hypertension: Yes Immune Disorder: Yes (ALLERGIES ) Implanted Vascular Access Dvce: No Kidney Stones: No Musculoskeletal: Yes (ARTHRITIS, OSTEOPORSIS ) Neurologic: Yes Psychiatric: No Reproductive: No Respiratory: No Immunizations Current: Yes Migraines: No Radiation Therapy: No Renal Failure: No Seizures: No Sickle Cell Disease: No Sleep Apnea: No Thyroid Disease: No Ulcer: No Tetanus Vaccination: < 5 Years Influenza Vaccination: No ?: Not : 2 Para: 2 Tubal Ligation: Yes Past Surgical History Abdominal Surgery: No AICD: No Arteriovenous Shunt: No Cardiac Surgery: No Ear Surgery: No Endocrine Surgery: No Eye Surgery: No Genitourinary Surgery: No Gynecologic Surgery: No Insulin Pump: No Joint Replacement: No Neurologic Surgery: Yes Oral Surgery: No Pacemaker: No Thoracic Surgery: No Other Surgery: Yes (left shoulder sx) Social History Alcohol Use: No Tobacco Use: No Substance Use: No Allergies-Medications (Allergen,Severity, Reaction): Coded Allergies: Flu Vaccine (Verified Allergy, Severe, 04/09/17) Penicillin (Verified Adverse Reaction, Severe, Nausea/Vomiting, 04/09/17) Uncoded Allergies: anethesia (Adverse Reaction, Severe, Nausea/Vomiting, 06/15/16) Reported Meds & Prescriptions Reported Meds & Active Scripts Active Neurontin (Gabapentin) 300 Mg Cap 300 Mg PO HS Nitrofurantoin Macrocrystal 100 Mg Cap 100 Mg PO DAILY 30 Days resume after has finished the course of Cipro. Baclofen 10 Mg Tab 5 Mg PO Q12HR 30 Days Carafate (Sucralfate) 1 Gm Tab 1 Gm PO BIDAC 30 Days Protonix (Pantoprazole Sodium) 20 Mg Tab 40 Mg PO Q12HR 30 Days Lipitor (Atorvastatin Calcium) 10 Mg Tab 10 Mg PO HS 30 Days Reported Keppra (Levetiracetam) 1,000 Mg Tab 1,000 Mg PO BID Data Data Last Documented VS Vital Signs Date Time Temp Pulse Resp B/P Pulse Ox O2 Delivery O2 Flow Rate FiO2 04/09/17 14:50 72 20 164/74 97 04/09/17 12:49 Room Air 04/09/17 11:[address] Brain W/O Iv Contrast(Rout) (04/09/17 12:14) Complete Blood Count With Diff (04/09/17 12:42) Comprehensive Metabolic Panel (04/09/17 12:42) Prothrombin Time / Inr (Pt) (04/09/17 12:42) Act Partial Throm Time (Ptt) (04/09/17 12:42) Ecg Monitoring (04/09/17 12:42) Iv Access Insert/Monitor (04/09/17 12:42) Oximetry (04/09/17 12:42) Sodium Chloride 0.9% Flush (Ns Flush) (04/09/17 12:45) Lorazepam Inj (Ativan Inj) (04/09/17 14:00) Acetamin-Hydrocod 325-5 Mg ([place] 5-325 (04/09/17 14:00) Labs Laboratory Tests Test 04/09/17 12:45 White Blood Count 7.6 TH/MM3 Red Blood Count 4.29 MIL/MM3 Hemoglobin 13.1 GM/DL Hematocrit 39.4 % Mean Corpuscular Volume 91.7 FL Mean Corpuscular Hemoglobin 30.5 PG Mean Corpuscular Hemoglobin 33.2 % Concent Red Cell Distribution Width 13.6 % Platelet Count 285 TH/MM3 Mean Platelet Volume 8.2 FL Neutrophils (%) (Auto) 68.1 % Lymphocytes (%) (Auto) 19.7 % Monocytes (%) (Auto) 10.0 % Eosinophils (%) (Auto) 1.4 % Basophils (%) (Auto) 0.8 % Neutrophils # (Auto) 5.2 TH/MM3 Lymphocytes # (Auto) 1.5 TH/MM3 Monocytes # (Auto) 0.8 TH/MM3 Eosinophils # (Auto) 0.1 TH/MM3 Basophils # (Auto) 0.1 TH/MM3 CBC Comment DIFF FINAL Differential Comment Prothrombin Time 10.5 SEC Prothromb Time International 1.0 RATIO Ratio Activated Partial 25.1 SEC Thromboplast Time Sodium Level 135 MEQ/L Potassium Level 4.1 MEQ/L Chloride Level 101 MEQ/L Carbon Dioxide Level 28.3 MEQ/L Anion Gap 6 MEQ/L Blood Urea Nitrogen 16 MG/DL Creatinine 0.70 MG/DL Estimat Glomerular Filtration 82 ML/MIN Rate Random Glucose 94 MG/DL Calcium Level 9.2 MG/DL Total Bilirubin 0.4 MG/DL Aspartate Amino Transf 20 U/L (AST/SGOT) Alanine Aminotransferase 28 U/L (ALT/SGPT) Alkaline Phosphatase 98 U/L Total Protein 8.6 GM/DL Albumin 4.3 GM/DL [facility] Medical Decision Making Medical Screen Exam Complete: Yes Emergency Medical Condition: Yes Narrative Course Patient roomed emerged permit, initial evaluation was offered pain medicine and declined. She states that she has been on hydrocodone in the past. She complains of frontal headache. Initial workup negative. She was offered lumbar puncture and after discussion response, occasions and alternatives of lumbar puncture as well as missing subarachnoid hemorrhage she declined the procedure this time. She would like to follow-up with Dr. Burgos. She is stable for discharge at this time. Diagnosis Primary Impression: Headache Qualified Code: R51 - Nonintractable headache, unspecified chronicity pattern , unspecified headache type Referrals: Mello Burgos MD Disposition: 01 DISCHARGE HOME Condition: Stable Los Kelly MD Apr 09, 2017 12:43
[2017-04-09 12:45] VITALS: O2SAT 98
[2017-04-09] MEDS ORDERED: SODIUM CHLORIDE 0.9% FLUSH 10 ML FLUSH IVF PRN (12:45)
[2017-04-09 12:49] VITALS: BP 180/84; PULSE 62; RESP 18; O2SAT 96
[2017-04-09 13:09] LABS: AUTOMATED NEUTROPHIL # 5.2 TH/MM3 (1.8-7.7); BASOPHIL # 0.1 TH/MM3 (0-0.2); BASOPHIL % 0.8 % (0.0-2.0); EOSINOPHIL # 0.1 TH/MM3 (0-0.4); EOSINOPHIL % 1.4 % (0.0-4.0); HEMATOCRIT 39.4 % (35.0-46.0); HEMO FLAGS DIFF FINAL; LYMPH % 19.7 % (9.0-44.0); LYMPHOCYTE # 1.5 TH/MM3 (1.0-4.8); MEAN CELL VOLUME 91.7 FL (80.0-100.0); MEAN CORPUSCULAR HEMOGLOBIN 30.5 PG (27.0-34.0); MEAN CORPUSCULAR HGB CONC 33.2 % (32.0-36.0); NEUT % 68.1 % (16.0-70.0); PLATELET COUNT 285 TH/MM3 (150-450); RED BLOOD COUNT 4.29 MIL/MM3 (4.00-5.30); RED CELL DISTRIBUTION WIDTH 13.6 % (11.6-17.2); WHITE BLOOD COUNT 7.6 TH/MM3 (4.0-11.0)
[2017-04-09 13:17] LABS: APTT (PATIENT) 25.1 SEC (24.3-30.1); PROTHROMBIN TIME - PATIENT 10.5 SEC (9.8-11.6)
[2017-04-09] MEDS ORDERED: KEPP10002 PO (13:30)
[2017-04-09 13:35] LABS: ALT (GPT) 28 U/L (10-53); ANION GAP 6 MEQ/L (5-15); BICARBONATE 28.3 MEQ/L (21.0-32.0); BLOOD UREA NITROGEN 16 MG/DL (7-18); CHLORIDE 101 MEQ/L (98-107); GLOMERULAR FILTRATION RATE 82 ML/MIN (>89); POTASSIUM 4.1 MEQ/L (3.5-5.1); SODIUM (NA) 135 MEQ/L (136-145)
[2017-04-09 13:37] LABS: ALKALINE PHOSPHATASE 98 U/L (45-117); AST (GOT) 20 U/L (15-37); TOTAL BILIRUBIN ADULT 0.4 MG/DL (0.2-1.0)
--- NOTE | 2017-04-09 13:42 | RADRPT ---
EXAM DATE/TIME: 04/09/2017 13:13 [place] COMPARISON: MRI BRAIN W & W/O CONTRAST, November 01, 2016, 9:37. CT BRAIN W/O CONTRAST, August 11, 2016, 3:34 . MRI BRAIN W/O CONTRAST, October 28, 2016, 16:17. CT BRAIN W/O CONTRAST, October 31, 2016, 10:16 . INDICATIONS : Headache, weakness since this morning. RADIATION DOSE: 56.35 CTDIvol (mGy) MEDICAL HISTORY : Stroke. Cardiovascular disease Hypertension. SURGICAL HISTORY : Tubal ligation. Craniotomy ENCOUNTER: Initial ACUITY: 1 day PAIN SCALE: 3/10 LOCATION: Bilateral frontal TECHNIQUE: Multiple contiguous axial images were obtained of the head. Using automated exposure control and adj ustment of the mA and/or kV according to patient size, radiation dose was kept as low as reasonably a chievable to obtain optimal diagnostic quality images. DICOM format image data is available electro nically for review and comparison. FINDINGS: Encephalomalacia is again noted within the right posteroparietal lobe. Old lacunar infarcts are note d within the left basal ganglia. There is no acute infarct, acute hemorrhage, mass effect or extra-axial fluid co llections. Right parietal craniotomy is again noted. The ventricles, sulci and cisterns are stable. CONCLUSION: 1. Encephalomalacia involving the right posteroparietal lobe is stable. 2. Old lacunar infarcts within the left basal ganglia. 3. No acute infarct, acute hemorrhage, mass effect or extra-axial fluid collections. Los Tomas MD on April 09, 2017 at 13:34 Board Certified Radiologist. This report was verified electronically.
[2017-04-09] MEDS ORDERED: ACETAMINOPHEN/HYDROcodone 325 MG/5 MG TAB PO ONE (14:00)
[2017-04-09] MEDS ORDERED: LORazepam 2 MG/ML VIAL IV PUSH ONE (14:00)
[2017-04-09 14:50] VITALS: BP 164/74
--- NOTE | 2017-04-09 15:34 | PD ---
HPI Chief Complaint: Headache Time Seen by Provider: 12:37 Travel History International Travel<30 days: No Contact w/Intl Traveler<30days: No Traveled to known affect area: No History of Present Illness HPI Patient is a 76-year-old female presents emergency Department with evaluation of frontal headache. 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 She denies any new focal deficits denies any visual changes denies any fevers. She has tried hydrocodone in the past but they took her off of this recently such she's not tried anything prior to arrival. On my initial evaluation the patient declined any pain medicine stating that his pain was coming and going. PFSH Past Medical History Hx Anticoagulant Therapy: No Arthritis: No Asthma: No Autoimmune Disease: No Blood Disorders: No Anxiety: No Depression: No Heart Rhythm Problems: No Cancer: No Cardiovascular Problems: Yes High Cholesterol: Yes Chemotherapy: No Chest Pain: No Congestive Heart Failure: No COPD: No Cerebrovascular Accident: Yes (SAH) Diabetes: No Diminished Hearing: No Endocrine: No Gastrointestinal Disorders: No GERD: No Genitourinary: Yes (URINARY TRACT INFECTIONS ) Headaches: Yes Hiatal Hernia: No Heparin Induced Thrombocytopen: No Hypertension: Yes Immune Disorder: Yes (ALLERGIES ) Implanted Vascular Access Dvce: No Kidney Stones: No Musculoskeletal: Yes (ARTHRITIS, OSTEOPORSIS ) Neurologic: Yes Psychiatric: No Reproductive: No Respiratory: No Immunizations Current: Yes Migraines: No Radiation Therapy: No Renal Failure: No Seizures: No Sickle Cell Disease: No Sleep Apnea: No Thyroid Disease: No Ulcer: No Tetanus Vaccination: < 5 Years Influenza Vaccination: No ?: Not : 2 Para: 2 Tubal Ligation: Yes Past Surgical History Abdominal Surgery: No AICD: No Arteriovenous Shunt: No Cardiac Surgery: No Ear Surgery: No Endocrine Surgery: No Eye Surgery: No Genitourinary Surgery: No Gynecologic Surgery: No Insulin Pump: No Joint Replacement: No Neurologic Surgery: Yes Oral Surgery: No Pacemaker: No Thoracic Surgery: No Other Surgery: Yes (left shoulder sx) Social History Alcohol Use: No Tobacco Use: No Substance Use: No Allergies-Medications (Allergen,Severity, Reaction): Coded Allergies: Flu Vaccine (Verified Allergy, Severe, 04/09/17) Penicillin (Verified Adverse Reaction, Severe, Nausea/Vomiting, 04/09/17) Uncoded Allergies: anethesia (Adverse Reaction, Severe, Nausea/Vomiting, 06/15/16) Reported Meds & Prescriptions Reported Meds & Active Scripts Active Neurontin (Gabapentin) 300 Mg Cap 300 Mg PO HS Nitrofurantoin Macrocrystal 100 Mg Cap 100 Mg PO DAILY 30 Days resume after has finished the course of Cipro. Baclofen 10 Mg Tab 5 Mg PO Q12HR 30 Days Carafate (Sucralfate) 1 Gm Tab 1 Gm PO BIDAC 30 Days Protonix (Pantoprazole Sodium) 20 Mg Tab 40 Mg PO Q12HR 30 Days Lipitor (Atorvastatin Calcium) 10 Mg Tab 10 Mg PO HS 30 Days Reported Keppra (Levetiracetam) 1,000 Mg Tab 1,000 Mg PO BID Review of Systems Except as stated in HPI: all other systems reviewed are Neg Physical Exam Narrative GENERAL: Well-developed well-nourished no apparent distress SKIN: Focused skin assessment warm/dry. HEAD: Atraumatic. Normocephalic. EYES: Pupils equal and round. No scleral icterus. No injection or drainage. ENT: No nasal bleeding or discharge. Mucous membranes pink and moist. NECK: Trachea midline. No JVD. CARDIOVASCULAR: Regular rate and rhythm. No murmur appreciated. RESPIRATORY: No accessory muscle use. Clear to auscultation. Breath sounds equal bilaterally. GASTROINTESTINAL: Abdomen soft, non-tender, nondistended. Hepatic and splenic margins not palpable. MUSCULOSKELETAL: No obvious deformities. No clubbing. No cyanosis. No edema. NEUROLOGICAL: Awake and alert. , The patient does have some left-sided deficit of both left upper and left lower extremity maybe 2 out of 5 strength in both extremities.. No cranial nerve deficits. Alert and awake and oriented, speech normal PSYCHIATRIC: Appropriate mood and affect; insight and judgment normal. Data Data Last Documented VS Vital Signs Date Time Temp Pulse Resp B/P Pulse Ox O2 Delivery O2 Flow Rate FiO2 04/09/17 14:50 72 20 164/74 97 04/09/17 12:49 Room Air 04/09/17 11:[address] Brain W/O Iv Contrast(Rout) (04/09/17 12:14) Complete Blood Count With Diff (04/09/17 12:42) Comprehensive Metabolic Panel (04/09/17 12:42) Prothrombin Time / Inr (Pt) (04/09/17 12:42) Act Partial Throm Time (Ptt) (04/09/17 12:42) Ecg Monitoring (04/09/17 12:42) Iv Access Insert/Monitor (04/09/17 12:42) Oximetry (04/09/17 12:42) Sodium Chloride 0.9% Flush (Ns Flush) (04/09/17 12:45) Lorazepam Inj (Ativan Inj) (04/09/17 14:00) Acetamin-Hydrocod 325-5 Mg (Kennett 5-325 (04/09/17 14:00) Labs Laboratory Tests Test 04/09/17 12:45 White Blood Count 7.6 TH/MM3 Red Blood Count 4.29 MIL/MM3 Hemoglobin 13.1 GM/DL Hematocrit 39.4 % Mean Corpuscular Volume 91.7 FL Mean Corpuscular Hemoglobin 30.5 PG Mean Corpuscular Hemoglobin 33.2 % Concent Red Cell Distribution Width 13.6 % Platelet Count 285 TH/MM3 Mean Platelet Volume 8.2 FL Neutrophils (%) (Auto) 68.1 % Lymphocytes (%) (Auto) 19.7 % Monocytes (%) (Auto) 10.0 % Eosinophils (%) (Auto) 1.4 % Basophils (%) (Auto) 0.8 % Neutrophils # (Auto) 5.2 TH/MM3 Lymphocytes # (Auto) 1.5 TH/MM3 Monocytes # (Auto) 0.8 TH/MM3 Eosinophils # (Auto) 0.1 TH/MM3 Basophils # (Auto) 0.1 TH/MM3 CBC Comment DIFF FINAL Differential Comment Prothrombin Time 10.5 SEC Prothromb Time International 1.0 RATIO Ratio Activated Partial 25.1 SEC Thromboplast Time Sodium Level 135 MEQ/L Potassium Level 4.1 MEQ/L Chloride Level 101 MEQ/L Carbon Dioxide Level 28.3 MEQ/L Anion Gap 6 MEQ/L Blood Urea Nitrogen 16 MG/DL Creatinine 0.70 MG/DL Estimat Glomerular Filtration 82 ML/MIN Rate Random Glucose 94 MG/DL Calcium Level 9.2 MG/DL Total Bilirubin 0.4 MG/DL Aspartate Amino Transf 20 U/L (AST/SGOT) Alanine Aminotransferase 28 U/L (ALT/SGPT) Alkaline Phosphatase 98 U/L Total Protein 8.6 GM/DL Albumin 4.3 GM/DL MDM Medical Decision Making Medical Screen Exam Complete: Yes Emergency Medical Condition: Yes Differential Diagnosis Acute on chronic headaches, Subarachnoid hemorrhage, acute CVA unlikely. Narrative Course Patient roomed emerged department, initial evaluation was offered pain medicine and declined. She states that she has been on hydrocodone in the past. She complains of frontal headache. Initial workup negative. She was offered lumbar puncture and after discussion response, occasions and alternatives of lumbar puncture as well as missing subarachnoid hemorrhage she declined the procedure this time. She would like to follow-up with Dr. Burgos. She is stable for discharge at this time. Diagnosis Primary Impression: Headache Qualified Code: R51 - Nonintractable headache, unspecified chronicity pattern , unspecified headache type Referrals: Mello Burgos MD Patient Instructions: General Instructions Departure Forms: Tests/Procedures Disposition: 01 DISCHARGE HOME Condition: Stable Los Kelly MD Apr 09, 2017 15:33
== END 2017-04-09 15:02 | disposition home or self-care (01) ==
LOC: NEPC 11:47
DX: R51 Headache (principal); I69.954 Hemiplegia and hemiparesis following unspecified cerebrovascular disease affecting left non-dominant side; E78.00 Pure hypercholesterolemia, unspecified; I10 Essential (primary) hypertension; M81.0 Age-related osteoporosis without current pathological fracture; M13.88 Other specified arthritis, other site; Z88.0 Allergy status to penicillin; Z79.899 Other long term (current) drug therapy
CPT/HCPCS: 70450; 80053; 85025; 85610; 85730